=== PATIENT | female | born 1955 | race Caucasian/White ===

== ENCOUNTER 2017-04-14 12:27 | Inpatient (IN) ==
--- NOTE | 2017-04-14 17:42 | Podiatry History & Physical ---
History of Present Illness HPI: Ms. Candelario is a 61 year old female who underwent a #1 incision and drainage to bone cortex for osteomyelitis toe #2 #2 complete phalangectomy distal #2 right foot on 03/30/2017 per Patient presented to office today with pain, swelling and erythema to toe. Patient states that she went to the beach a couple of weeks ago and then the toe became very painful. Patient also states she was told by her PCP to stop her antibiotic because she had broke out in a rash. Patient states that her toe became more painful, swollen and red after stopping the antibiotics. Patient was admitted today after OV for administration of antibiotics and will prepare for amputation of toe #2 right foot in AM with . Patient is aware of plan. Patient denies any recent fevers, chills, n/v or flu like symptoms. Patient noted to have dressing in place which is currently saturated in blood. Also has post op shoe on. Patient has minimal health hx, only controlled DM and HTN. All Systems Reviewed: A 10-system review of systems was performed and is negative for pertinent findings except as documented above in the HPI. Past Med Surg Social Fam HX - Past Medical History Medical history: diabetes, hypertension, other Psychiatric history: no psych history - Past Surgical History Surgical History: knee replacement - Social History Smoking Status: Never smoker Smokeless Tobacco Status: No Alcohol use: none Drug use: none - Family History Mother Living Status: Still Living Hx Family Cardiac Disorders: Yes (CHF, A FIB) Medications and Allergies Aspirin Enteric Coated [Aspirin EC] 81 mg PO DAILY 06/06/16 [History] metFORMIN [Glucophage] 500 mg PO BIDWM 06/06/16 [History] Losartan/Hydrochlorothiazide [Hyzaar 100-25 Tablet] 1 tab PO DAILY 10/20/16 [ History] HYDROcodone/Acet 5/325 mg [[place] 5-325 mg] 1 tab PO Q4H PRN #20 tab 03/30/17 [Rx ] Allergies No Known Allergies Allergy (Verified 10/20/16 08:13) Physical Exam - Constitutional Vitals: Temp Pulse Resp BP Pulse Ox 98.4 F 91 16 108/70 97 04/14/17 16:39 04/14/17 16:39 04/14/17 16:39 04/14/17 16:39 04/14/17 16:39 Exam: Patient is awake, alert and oriented. Pedal pulses palpable DP/PT bilaterally Movement is intact Cap refill <3 seconds Edema +1/4 No calf pain with manual compression - Head Head exam: Present: normal inspection - Eye Eye exam: Present: normal appearance Pupils: Present: PERRL - Neck Neck exam: Present: full ROM - Respiratory Additional comments: coarse breath sounds throughout - GI/Abdominal GI/Abdominal exam: Present: soft - Extremities Exam Extremities exam: Present: full ROM, normal inspection - Expanded Lower Extremities Exam Foot/Toe exam: Present: erythema, swelling, tenderness 1 - Edema, erythema, warmth and tenderness of toe #2 right foot. s/p 03/30/17 08:27. #1 incision and drainage to bone cortex for osteomyelitis toe #2. #2 complete phalangectomy distal #2 right foot Results - Labs Labs: All other labs normal. Assessment and Plan (1) Skin infection Current visit: Yes Status: Acute Secondary to non healing surgical site with infection Will plan for administration of IV antibiotics at this time Will plan for OR tomorrow with for amputation of toe #2 right foot May eat now, will be NPO after midnight Will consult internal for medical management Strict glucose control to assist in healing process If dressing becomes saturated, please remove and place with dry sterile dressing Will write for 1x dose of pain medication to make patient comfortable (2) Rash Current visit: Yes Status: Acute Patient has rash over entire body, small fluid filled areas are noted Patient states it itches severely States she was told by PCP it was a reaction to antibiotic - to me, it appears related to sun exposure with concurrent antibiotic use- patient recently returned from the beach Will administer dose of solucortef as well as atarax PO for itching (3) Type 2 diabetes mellitus Current visit: Yes Status: Acute Will consult internal med for management Qualifiers: Diabetes mellitus complication status: without complication Diabetes mellitus termite treater insulin use: without termite treater use Qualified Code(s): E11.9 - Type 2 diabetes mellitus without complications (4) Hypertension Current visit: Yes Status: Acute Qualifiers: Hypertension type: unspecified Qualified Code(s): I10 - Essential (primary ) hypertension
[2017-04-14] MEDS ORDERED: Vancomycin 1,750 MG in D5% in Water 250 ML IVPB SCH (18:00)
[2017-04-14] MEDS ORDERED: HydrOXYzine SYP 10 MG/5 ML UDC PO PRN (18:02)
[2017-04-14] MEDS ORDERED: Hydrocortisone Sodium Succ 100 MG/2 ML VIAL IVP ONE (18:05)
[2017-04-14] MEDS ORDERED: Vancomycin 1,750 MG in D5% in Water 500 ML IVPB ONE ×2 (18:30→23:00)
[2017-04-14 18:32] LABS: Basophils % 0.3 %; Eosinophils # 0.4 K/mcL (0.0-0.6); Eosinophils % 4.2 %; Hematocrit 36.6 % (35.3-44.9); Hemoglobin 12.2 g/dL (11.5-15.4); Immature Granulocytes % 0.3 % (0-4); Lymphocytes # 1.8 K/mcL (0.6-4.6); Lymphocytes % 18.3 %; Mean Corpuscular HGB Conc 33.3 g/dL (31.6-35.5); Mean Corpuscular Hemoglobin 29.5 pg (28.0-33.3); Mean Corpuscular Volume 88.6 fL (83.0-100.0); Mean Platelet Volume 9.2 fL (9.4-12.4); Monocytes # 0.8 K/mcL (0.0-1.3); Monocytes % 8.4 %; Neutrophils # 6.7 K/mcL (1.6-8.9); Platelet Count 239 K/mcL (140-400); Red Blood Count 4.13 M/mcL (3.82-4.97); Red Cell Distribution Width 12.6 % (11.5-14.5); Segmented Neutrophils % 68.5 %
[2017-04-14 18:43] LABS: BUN/Creatinine Ratio 25 (6-26); Blood Urea Nitrogen 15 mg/dL (7-20); Calcium 9.5 mg/dL (8.6-10.8); Carbon Dioxide 24 mEq/L (19-29); Chloride 104 mEq/L (98-109); Glucose 120 mg/dL (70-99); Osmolality,Calculated 292 (280-300); Sodium 140 mEq/L (136-145); eGFR For African Americans > 60 (> 60); eGFR For Non-African Americans > 60 (> 60)
[2017-04-14 18:46] LABS: INR 1.1; Prothrombin Time 12.2 Seconds (9.4-12.1)
[2017-04-14 18:54] LABS: Potassium 3.8 mEq/L (3.5-4.5)
[2017-04-14] MEDS: *HR* HYDROcodone/Acet 5/325 mg TABLET PO PRN ×2 (19:30→23:48)
[2017-04-14] MEDS ORDERED: D5% in Water 1,000 ML IVC PRN (19:32)
[2017-04-14] MEDS ORDERED: *HR* Dextrose 50 % in Water (Syg) 50 ML SYRINGE IVP PRN (19:32)
[2017-04-14] MEDS ORDERED: Dextrose Gel 15 GM PO PRN ×2 (19:32)
--- NOTE | 2017-04-14 20:58 | Internal Medicine Consult Note ---
Date of Encounter: 04/14/17 Time of Encounter: 19:30 - Assessment and Plan (1) Diabetic foot ulcer Current Visit: Yes Status: Acute Assessment and plan: she has had debridement and amputations, exam of the wound look inflamed but promising, we will continue IV Vancomycin, should she spike a fever we will need to add Zosyn to cover for Pseudomonas, we will defer further management to Podiatry Qualifiers: Diabetic foot ulcer location: toe Diabetes mellitus type: type 2 Laterality: right Non-pressure ulcer stage: limited to breakdown of skin Qualified Code(s): E11.621 - Type 2 diabetes mellitus with foot ulcer; L97.511 - Non-pressure chronic ulcer of other part of right foot limited to breakdown of skin (2) Rash Current Visit: Yes Status: Acute Assessment and plan: this is macula and pruritic most likely related to the antibiotic she was taking (?cefdinir), she has since stopped it, should it worsen she will benefit from short term use of steroids, antihistamines as needed for symptom relief (3) Type 2 diabetes mellitus Current Visit: Yes Status: Chronic Assessment and plan: well controlled and on metformin, her last A1c was 6.6% in 09/2016, we will update that, for now we will hold her Metformin and do basal bolus insulin regimen, adjusting it based on her glucose readings, as long as she is fasting for surgical interventions we will do FS Q6H and switch to ACHS when she resumes eating, her insulin dosing will also follow her FS, upon discharge home she can resume her metformin immediately if she did not get any contrast studies but should she get contrast studies metformin will have to be held for 48 hours following the study Qualifiers: Diabetes mellitus complication status: with hyperglycemia Diabetes mellitus terminal make up operator insulin use: without mcc use Qualified Code(s): E11.65 - Type 2 diabetes mellitus with hyperglycemia (4) Hypertension Current Visit: Yes Status: Chronic Assessment and plan: will continue her medication with BP monitoring Qualifiers: Hypertension type: essential hypertension Qualified Code(s): I10 - Essential (primary) hypertension Internal Medicine - CN: HPI - Data of Consult Patient: new to practice Consult date: 04/14/17 Requesting Physician: Gordon Davey, - Consult Narrative Reason for consult: Assist in managing Diabetes type 2 in the setting of cellulitis History of present illness: Ms. Candelario is a 61 year old female with a hx of well controlled DM and HTN who follows up with Dr Davey who was sent to the ER of [facility] for worsening right 2nd toe ulcer. Per reports she had incision and drainage to bone cortex for osteomyelitis on toe #2 of the right foot followed by complete phalangectomy distal #2 right foot on 03/30/2017. She was subsequently started on antibiotics but she developed a generalized macula pruritic rash afterwards so that was discontinued by her PCP. She presented to office today with pain, swelling and erythema to toe and reported that this began after she went to the beach (whilst vacationing) a couple of weeks ago. It has gradually been getting increasingly red painful, pain in throbbing in character and 10/10 in severity and radiates proximally and has made it difficult for her to ambulate. She was sent to the ER for admission to be started on IV Vancomycin and for further debridement. She denies any systemic symptoms of fevers, chills, nausea or vomiting, or any flu like symptoms. The medical team was consulted to weigh in regarding her diabetes management in the face of her concurrent condition. Past Med Surg Social Fam HX - Past Medical History Source: patient, old records reviewed Medical history: diabetes, hypertension, other Psychiatric history: no psych history - Past Surgical History Surgical History: knee replacement (bilateral) - Social History Smoking Status: Never smoker Smokeless Tobacco Status: No Alcohol use: none Drug use: none - Family History Mother Living Status: Still Living Hx Family Cardiac Disorders: Yes (CHF, A FIB) - Additional Family History Additional family history: Both parents are with no known medical problems Internal Medicine - CN: Meds Aspirin Enteric Coated [Aspirin EC] 81 mg PO DAILY 06/06/16 [History] metFORMIN [Glucophage] 500 mg PO BIDWM 06/06/16 [History] Losartan/Hydrochlorothiazide [Hyzaar 100-25 Tablet] 1 tab PO DAILY 10/20/16 [ History] HYDROcodone/Acet 5/325 mg [[place] 5-325 mg] 1 tab PO Q4H PRN #20 tab 03/30/17 [Rx ] Allergies No Known Allergies Allergy (Verified 10/20/16 08:13) Internal Medicine - CN: Exam - Constitutional Vitals: Temp Pulse Resp BP Pulse Ox 98.3 F 90 18 122/78 96 04/14/17 20:24 04/14/17 20:24 08/04/17 20:24 04/14/17 20:24 04/14/17 20:24 Internal Medicine - CN: Reslt - Labs CBC & Chem 7: 04/14/17 18:17 04/14/17 18:17 Labs: Short CBC 04/14/17 Range/Units 18:17 WBC 9.8 (4.3-11.1) K/mcL Hgb 12.2 (11.5-15.4) g/dL Hct 36.6 (35.3-44.9) % Plt Count 239 (140-400) K/mcL Neutrophils # 6.7 (1.6-8.9) K/mcL BMP 04/14/17 18:17 Sodium 140 Potassium 3.8 Chloride 104 Carbon Dioxide 24 BUN 15 Creatinine 0.61 Glucose 120 H Calcium 9.5 - ABG Interpretation ABG results: PT/INR, D-dimer PT 12.2 Seconds (9.4-12.1) H 04/14/17 18:17 - Impressions We appreciate the opportunity to participate in the care of this patient, we will continue to follow with you Thank you On behalf of the hospitalist service Consult Discharge Plan - Plan Referrals: Antony Lopez DO [Primary Care Provider] -
[2017-04-14] MEDS: Insulin LISPRO 300 UNITS/3 ML VIAL SQ SCH (23:48)
[2017-04-15] MEDS: Insulin LISPRO 300 UNITS/3 ML VIAL SQ SCH ×4 (05:27→21:33)
[2017-04-15] MEDS ORDERED: Bupivacaine/Clonidine Syringe 1 EACH SYRINGE ONE (07:10)
--- NOTE | 2017-04-15 07:19 | Anesthesia Evaluation PreOp ---
Date of Encounter: 04/15/17 Time of Encounter: 07:17 - Past History Planned Operation: Partial Amputation Right Toe #2 Cardiac History: HTN Pulmonary History: Denies Any Significant HX OTR [employer] History: Denies Any Significant HX Other Medical History: Diabetes Type II Anesthesia History: Past Anesthesia (I&D Right toe) : No Alcohol Use: none Drug use: none Medications and Allergies Aspirin Enteric Coated [Aspirin EC] 81 mg PO DAILY 06/06/16 [History] metFORMIN [Glucophage] 500 mg PO BIDWM 06/06/16 [History] Losartan/Hydrochlorothiazide [Hyzaar 100-25 Tablet] 1 tab PO DAILY 10/20/16 [ History] HYDROcodone/Acet 5/325 mg [[place] 5-325 mg] 1 tab PO Q4H PRN #20 tab 03/30/17 [Rx ] Allergies No Known Allergies Allergy (Verified 10/20/16 08:13) - Meds/Allergy Pre-op Review Medications Reviewed: Yes Allergies Reviewed: Yes Beta Blockers on Current Med List: No Anesthesia Results - Labs 04/14/17 18:17 04/14/17 18:17 Stress 2010 No ischemia EF-60% - Imaging EKG: report reviewed (SINUS RHYTHM INFERIOR MYOCARDIAL INFARCTION, PROBABLY OLD) Anesthesia Exam O2 Sat Height 1.73 m Weight 92.941 kg Weight 108.579 kg O2 Sat by Pulse Oximetry 92 O2 Sat by Pulse Oximetry 97 O2 Sat by Pulse Oximetry 97 O2 Sat by Pulse Oximetry 96 O2 Sat by Pulse Oximetry 97 Vital Signs Temp Pulse Resp BP Pulse Ox 98.4 F 91 16 108/70 97 04/14/17 16:39 04/14/17 16:39 04/14/17 16:39 04/14/17 16:39 04/14/17 16:39 Vital Signs/O2 Sat, Most Current Temp Pulse Resp BP Pulse Ox 97.6 F 72 16 122/77 92 04/15/17 06:55 04/15/17 06:55 04/15/17 06:55 04/15/17 06:55 04/15/17 06:55 Height: 5'8" Weight: 204# NPO (# of Hours): > 8 hrs Pain Scale: 0 Pain Scale Used: Numeric (1 - 10) - HEENT Pupil (Motor): Pupils equal, EOMI Mallampati: III Teeth: Normal Oral Opening: Greater than 3 - OTR [employer] LOC: Oriented [employer] Motor: Normal RUE, Normal LUE, Normal RLE, Normal LLE, Normal Face [employer]TR [employer] Sensory: Normal: RUE, LUE, RLE, LLE, Face - Cardiac Rhythm: Regular Murmur: None JVD: No Carotid Bruit: No - Pulmonary Breath Sounds: bilateral Clear Respiratory Effort: Symmetrical Anesthesia Assess/Plan ASA Score: 2 Modified [place]in Scale for Level of Consciousness: Cooperative, oriented, and tranquil Anesthetic Plan: MAC Autologous Blood: Yes Monitoring Plan: Standard Monitors Recovery Plan: Other
[2017-04-15] MEDS ORDERED: *HR* FentaNYL (PF) 100 MCG/2 ML VIAL ONE (07:25)
[2017-04-15] MEDS ORDERED: *HR* Midazolam HCl 2 MG/2 ML VIAL ONE (07:25)
[2017-04-15] MEDS ORDERED: Propofol 500 MG/50 ML INFUS..BTL ONE (07:32)
[2017-04-15] MEDS ORDERED: Lidocaine -MPF 2% 2 ML VIAL ONE (07:35)
[2017-04-15] MEDS ORDERED: *HR* Propofol 200 MG/20 ML VIAL IVP ONE (07:58)
[2017-04-15] MEDS ORDERED: Ondansetron 4 MG/2 ML VIAL ONE (08:11)
[2017-04-15] MEDS ORDERED: Dexamethasone 4 MG/ML VIAL ONE (08:11)
[2017-04-15] MEDS ORDERED: Losartan/HCTZ 50-12.5 TABLET PO SCH (09:00)
--- NOTE | 2017-04-15 09:11 | Anesthesia Evaluation Post Op ---
Date of Encounter: 04/15/17 Time of Encounter: 09:04 - Vital Signs Vital Signs: Vital Signs/O2 Sat, Most Current Temp Pulse Resp BP Pulse Ox 97.6 F 72 16 113/70 72 04/15/2017 08:57 04/15/17 08:57 04/15/17 08:57 04/15/17 08:57 04/15/17 08:57 - Lungs Lungs: Clear Ascult./Percussion - Airway Airway: Non-obstructed - Cardiovascular Regular Rate - Mental Status Mental Status: Alert & Oriented, Answers Appropriately - Pain Pain Scale: 0 Pain Scale used: Numeric (1 - 10) - Hydration Hydration: NPO, Has not voided - Discharge PostOp Status: Transfer Patient to floor
--- NOTE | 2017-04-15 09:11 | Orthopedic Operative Note ---
Date of procedure: 04/15/17 Pre-op diagnosis: Osteomyelitis toe #2 right Post-op diagnosis: same Procedure: 04/15/17 09:04 #1 partial amputation of toe at the level of the proximal phalangeal joint #2, toe right foot Implants: None Complications: None Anesthesia: MAC, local Local Anesthetics: 0.25% Sensorcaine HCL SubQ (cc) Surgeon: Gordon Davey Estimated blood loss (cc): 5 Tourniquet Time (Minutes): 0 Specimen: #1 distal aspect toe #2 right foot. #2 middle phalanx for bone culture. Condition: stable Disposition: floor Procedure in Detail: 04/15/17 09:05 Details in summary of the procedure: The patient was brought to the surgical suite. A sign in procedure was performed. The patient was then transferred to the surgical table and positioned probably safely securely. The right foot was elevated on a foam block. Anesthetic timeout was taken. The right ankle was prepped with alcohol 3 times in a modified ankle block was carried out with local anesthetic without difficulty or complication. No tourniquet was used. The right foot was then prepped and draped in usual sterile manner. Surgical timeout was taken. Inspection of the second toe revealed a dehiscence of the distal aspect of the second toe without active drainage. Patient incision was planned with a skin scribe beginning in the medial aspect of the proximal interphalangeal joint and brought distally and then plantarly and transverse fashion bleeding the junction of the lateral plantar skin on the lateral aspect of the toe and then proximally in a linear fashion proximally to the proximal phalanx. Satisfied that this incision would be appropriate the operation began using a #15 scalpel blade an incision was made on the medial aspect of the second toe directly down to the surgical neck of the proximal phalanx and brought distally once reaching the distal aspect of the middle phalanx purulent drainage was expressed immediately to the medial aspect of the incision. The incision was continued plantarly. At that point cultures were taken swab aerobic and anaerobic of purulent drainage. Using a #15 scalpel blade fresh incision was continued from the plantar aspect to the lateral aspect of the toe at the junction of the lateral dorsal skin and then proximally in linear fashion to the surgical neck of the proximal phalanx a transverse incision was then begun on the dorsal aspect just at the level of the middle phalanx from dorsal medial to dorsal lateral. The distal aspect of the second toe was then amputated without difficulty or complication exposing the middle phalanx which is noted to be of abnormal color texture density and irregular character. The wound was flushed with copious amounts sterile saline. The middle phalanx was then isolated at the level of the PIPJ and dividing the collateral medial lateral ligaments dorsal and plantar the middle phalanx was then resected and sent immediately for culture. The head of the proximal phalanx was noted to be absolutely pristine and normal color texture density character cartilaginous surfaces were intact and there was no evidence of any necrosis remaining of any soft tissue within the wound. It was thoroughly inspected and flushed with copious amounts sterile saline at least 250 mL. The remaining soft tissue the wound was of normal color texture and density without evidence of any necrosis. As at that point decision to close the wound loosely was made. Using a 3-0 Vicryl the flexor tendon was then reanastomosed the dorsal tendon over the distal aspect of the proximal phalanx. The skin was then loosely closed with 3-0 Prolene. There was no active bleeding that necessitated use of Bovie ligature. The wound noted to bleed freely again without active hemostasis. Dorsal and plantar flaps remained viable with a Initial time of less than 3 seconds after closure. The wound was cleansed with saline and peroxide. And dressed with sterile Adaptic 4 x 4's and Kerlix and a mild compressive dressing. Occasions, none estimated blood loss less than 5ml. Specimen distal aspect of tumor 2 toe right foot. Bone culture middle phalanx #2 toe. Swab cultures aerobe and anaerobe right second toe. The patient was then sent to holding and then onto the floor with vital signs stable without complication. 04/15/17 09:11
[2017-04-15] MEDS ORDERED: D5% in Water 1,000 ML IVC PRN (09:14)
[2017-04-15] MEDS ORDERED: HydrOXYzine SYP 10 MG/5 ML UDC PO PRN (09:14)
[2017-04-15] MEDS ORDERED: *HR* Dextrose 50 % in Water (Syg) 50 ML SYRINGE IVP PRN (09:14)
[2017-04-15] MEDS ORDERED: Dextrose Gel 15 GM PO PRN ×2 (09:14)
[2017-04-15] MEDS ORDERED: Vancomycin 1,750 MG in D5% in Water 500 ML IVPB SCH ×2 (10:00)
[2017-04-15] MEDS ORDERED: Insulin LISPRO 300 UNITS/3 ML VIAL SQ SCH (12:00)
--- NOTE | 2017-04-15 16:02 | Internal Med Progress Note ---
Date of Encounter: 04/15/17 Time of Encounter: 10:15 - Assessment and plan (1) Diabetic foot ulcer Current Visit: Yes Status: Acute Assessment and plan: Status post partial" total level of proximal phalangeal joint on the right side - doing well postoperatively Continue IV vancomycin Plan as per primary team Thank you for the consult. We will follow-up with patient. Qualifiers: Diabetic foot ulcer location: toe Diabetes mellitus type: type 2 Laterality: right Non-pressure ulcer stage: limited to breakdown of skin Qualified Code(s): E11.621 - Type 2 diabetes mellitus with foot ulcer; L97.511 - Non-pressure chronic ulcer of other part of right foot limited to breakdown of skin (2) Type 2 diabetes mellitus Current Visit: Yes Status: Chronic Assessment and plan: Diabetes mellitus type 2, [id number]-[id number], hyperglycemia Insulin sliding scale, glucose checks HbA1c 6.6 Continue Metformin on discharge Qualifiers: Diabetes mellitus complication status: with hyperglycemia Diabetes mellitus jail insulin use: without jail use Qualified Code(s): E11.65 - Type 2 diabetes mellitus with hyperglycemia (3) Hypertension Current Visit: Yes Status: Chronic Assessment and plan: Essential hypertension, controlled, monitor, continue home meds Qualifiers: Hypertension type: essential hypertension Qualified Code(s): I10 - Essential (primary) hypertension - Time Spent With Patient 25 - 35 minutes - Subjective Interval history: Examined this morning. Patient is awake and alert. Not in any distress. Denies chest pain or shortness of breath. Patient was admitted by Dr. Davey for a nonhealing surgical site infection. Patient underwent a partial amputation of the toe with a little proximal phalangeal joint this morning. Doing well postoperatively. No fever. Hemodynamically stable. No other acute complaints. Hospitalist service consultation for management of diabetes mellitus. Thank you for the consult. We will follow up with the patient. - Constitutional Vitals: Temp Pulse Resp BP Pulse Ox 98.2 F 84 17 126/76 97 04/15/17 14:39 04/15/17 14:39 04/15/17 14:39 04/15/17 14:39 04/15/17 14:39 General appearance: Present: A&O X 3, pleasant, no acute distress, obese, answers questions appropriately - Head Head exam: Present: atraumatic - Eye Eye exam: Present: EOMI - Neck Neck exam general surgery: Present: supple - Respiratory Respiratory exam: Present: CTAB. Absent: rales, rhonchi, stridor, wheezes, tachypnea - Cardiovascular Cardiovascular exam: Present: RRR, +S1, +S2 - GI/Abdominal GI/Abdominal exam: Present: soft. Absent: distended, firm, guarding, rigid, tenderness - Extremities Exam Extremities exam: Present: pedal edema (Mild bilateral), radial pulses palpable and symetrical. Absent: cyanotic Additional comments: Status post partial amputation of the total of the proximal phalangeal joint on the right side, surgical dressing intact, no bleeding or drainage - Neurological Exam Neurological exam: Present: alert, oriented X3, no focal deficits Internal Medicine: Result - Labs CBC & Chem 7: 04/14/17 18:17 04/14/17 18:17 Labs: Short CBC 04/14/17 Range/Units 18:17 WBC 9.8 (4.3-11.1) K/mcL Hgb 12.2 (11.5-15.4) g/dL Hct 36.6 (35.3-44.9) % Plt Count 239 (140-400) K/mcL Neutrophils # 6.7 (1.6-8.9) K/mcL BMP 04/14/17 18:17 Sodium 140 Potassium 3.8 Chloride 104 Carbon Dioxide 24 BUN 15 Creatinine 0.61 Glucose 120 H Calcium 9.5 - ABG Interpretation ABG results: PT/INR, D-dimer PT 12.2 Seconds (9.4-12.1) H 04/14/17 18:17 - VTE Documentation of Mechanical Device: Intermittent pneumatic compression device Consult Discharge Plan - Plan Referrals: Antony Lopez DO [Primary Care Provider] -
[2017-04-15] MEDS: Vancomycin 1,250 MG in D5% in Water 250 ML IVPB SCH (22:09)
[2017-04-16] MEDS ORDERED: Temazepam 15 MG CAPSULE PO ONE ×2 (00:06→21:56)
[2017-04-16 04:43] LABS: Hemoglobin A1C 6.6 %
[2017-04-16] MEDS: Insulin DETEMIR 100 UNIT/ML X5UNITS SQ SCH ×2 (09:06→22:05)
[2017-04-16] MEDS: Losartan/HCTZ 50-12.5 TABLET PO SCH (09:06)
[2017-04-16] MEDS: Aspirin Enteric Coated 81 MG Tablet PO SCH (09:06)
[2017-04-16] MEDS: *HR* HYDROcodone/Acet 5/325 mg TABLET PO PRN ×2 (09:10→22:05)
[2017-04-16] MEDS: Vancomycin 1,250 MG in D5% in Water 250 ML IVPB SCH ×2 (10:35→22:07)
--- NOTE | 2017-04-16 12:39 | Podiatry Progress Note ---
Date of Encounter: 04/16/17 Time of Encounter: 12:35 - Assessment and Plan (1) Acute osteomyelitis of toe of right foot Current Visit: Yes Status: Acute Assessment: #1 status post 24 hours partial amputation toe #2 right foot without any constitutional signs of infection or complication #2 healing uneventfully #3 cultures final still pending history of MRSA. Most recent culture in clinic prior to surgery revealed MSSA #4 intraoperative cultures and bone culture pending Plan: #1 continue IV antibiotic/vancomycin until cultures prove otherwise #2 consider home IV antibiotics for 3 weeks pending bone culture/wound cultures #3 continue pharmacy dosed vancomycin and monitor kidney function given her history of diabetes #4 will change dry sterile dressing in the a.m. and evaluate wound. Subjective Principal diagnosis: Osteomyelitis toe #2 right foot Interval history: Mrs. Candelario underwent partial amputation of toe surgical control the infection successful. Dressing dry clean and intact no complaints of fever chills nausea vomiting. No chest pain or shortness of breath. Patient complains of minimal pain slight discomfort Objective - Vital Signs Vital Signs: Vital Signs Temp Pulse Resp BP Pulse Ox 04/16/17 10:24 97.5 F L 71 16 129/77 98 04/16/17 06:36 97.4 F L 70 16 114/70 94 04/16/17 03:59 97.6 F 77 14 118/71 97 04/15/17 23:55 97.7 F 84 14 137/89 97 04/15/17 18:40 98.0 F 85 14 111/67 97 04/15/17 14:39 98.2 F 84 17 126/76 97 Intake and Output 04/15/17 04/16/17 04/16/17 23:59 07:59 15:59 Intake Total 370 / 370 240 / 240 240 / 240 Output Total 400 / 400 0 / 0 100 / 100 Balance -30 / -30 240 / 240 140 / 140 Intake: IV Fluids 250 / 250 Vancocin 1,250 MG In 250 / 250 Dextrose 5% 250 ML @ 166. 67 mls/hr IVPB Q12H [facility] Rx#:[id number] Oral 120 / 120 240 / 240 240 / 240 Output: Urine 400 / 400 0 / 0 100 / 100 Other: Meal Breakfast Percent of Meal Consumed 100% Stool Size Moderate Stool Consistency formed Stool Color Brown # Voids 1 # Bowel Movements 1 0 0 Weight 92.805 kg Blood Glucose* 173 118 150 Patient Weight 04/16/17 23:59 Weight 92.805 kg - Exam Exam: Dressing dry clean and intact no strikethrough drainage. - Lab Result Diagrams: 04/14/17 18:17 04/14/17 18:17 Labs: Abnormal lab results MPV 9.2 fL (9.4-12.4) L 04/14/17 18:17 ESR 61 mm/hr (0-15) H 04/14/17 18:17 PT 12.2 Seconds (9.4-12.1) H 04/14/17 18:17 Glucose 120 mg/dL (70-99) H 04/14/17 18:17 POC Glucose 173 (58-89) H 04/15/17 20:42 Hemoglobin A1c 6.6 % (-5.6) H 04/14/17 18:17 Vancomycin Trough 7.7 mcg/mL (10-20) L 04/16/17 09:09 - VTE Documentation of Mechanical Device: Intermittent pneumatic compression device Consult Discharge Plan - Plan Referrals: Antony Lopez DO [Primary Care Provider] -
[2017-04-16] MEDS: Insulin LISPRO 300 UNITS/3 ML VIAL SQ SCH ×3 (12:44→22:00)
--- NOTE | 2017-04-16 15:34 | Internal Med Progress Note ---
Date of Encounter: 04/16/17 Time of Encounter: 11:15 - Assessment and plan (1) Diabetic foot ulcer Current Visit: Yes Status: Acute Assessment and plan: Status post partial amputation of toe at the level of proximal phalangeal joint on the right side - doing well postoperatively, postop day #1 Continue IV vancomycin, wound care Plan as per primary team, discharge planning as per primary team Thank you for the consult. We will follow-up with patient. Qualifiers: Diabetic foot ulcer location: toe Diabetes mellitus type: type 2 Laterality: right Non-pressure ulcer stage: limited to breakdown of skin Qualified Code(s): E11.621 - Type 2 diabetes mellitus with foot ulcer; L97.511 - Non-pressure chronic ulcer of other part of right foot limited to breakdown of skin (2) Type 2 diabetes mellitus Current Visit: Yes Status: Chronic Assessment and plan: Diabetes mellitus type 2, [id number], hyperglycemia Insulin sliding scale with medium dose correction, continue Levemir, glucose checks HbA1c 6.6 Continue Metformin on discharge Qualifiers: Diabetes mellitus complication status: with hyperglycemia Diabetes mellitus executive sous chef insulin use: without executive sous chef use Qualified Code(s): E11.65 - Type 2 diabetes mellitus with hyperglycemia (3) Hypertension Current Visit: Yes Status: Chronic Assessment and plan: Essential hypertension, controlled, monitor, continue home meds Qualifiers: Hypertension type: essential hypertension Qualified Code(s): I10 - Essential (primary) hypertension - Time Spent With Patient 25 - 35 minutes - Subjective Interval history: Examined this morning. Patient is awake and alert. Not in any distress. Denies chest pain or shortness of breath. Patient was admitted by Dr. Davey for a nonhealing surgical site infection. Patient underwent a partial amputation of the toe with a little proximal phalangeal joint, postop day #1. Doing well postoperatively. Hospitalist service consultation for management of diabetes mellitus. Patient continues to have hypoglycemia. Insulin sliding scale dose has been adjusted and Levemir will be continued. No other acute events or complaints. No fever. Hemodynamically stable. Thank you for the consult. We will follow up with the patient. - Constitutional Vitals: Temp Pulse Resp BP Pulse Ox 98.0 F 85 16 119/73 98 04/16/17 15:16 04/16/17 15:16 04/16/17 15:16 04/16/17 15:16 04/16/17 15:16 General appearance: Present: A&O X 3, pleasant, no acute distress, obese, answers questions appropriately - Head Head exam: Present: atraumatic - Eye Eye exam: Present: EOMI - ENT ENT exam: Present: mucous membranes moist - Neck Neck exam general surgery: Present: supple - Respiratory Respiratory exam: Absent: CTAB, rales, rhonchi, stridor, wheezes, tachypnea - Cardiovascular Cardiovascular exam: Present: RRR, +S1, +S2 - GI/Abdominal GI/Abdominal exam: Present: soft. Absent: distended, firm, guarding, rigid, tenderness - Extremities Exam Extremities exam: Present: pedal edema (Mild bilateral), radial pulses palpable and symetrical. Absent: calf tenderness, cyanotic Additional comments: Status post partial amputation of the total of the proximal phalangeal joint on the right side, surgical dressing intact, no bleeding or drainage - Neurological Exam Neurological exam: Present: alert, oriented X3, no focal deficits Internal Medicine: Result - Labs CBC & Chem 7: 04/14/17 18:17 04/14/17 18:17 - ABG Interpretation ABG results: PT/INR, D-dimer PT 12.2 Seconds (9.4-12.1) H 04/14/17 18:17 - VTE Documentation of Mechanical Device: Intermittent pneumatic compression device Consult Discharge Plan - Plan Referrals: Antony Lopez DO [Primary Care Provider] -
[2017-04-17 05:01] LABS: BUN/Creatinine Ratio 32 (6-26); Blood Urea Nitrogen 22 mg/dL (7-20); Calcium 8.9 mg/dL (8.6-10.8); Carbon Dioxide 25 mEq/L (19-29); Chloride 106 mEq/L (98-109); Glucose 119 mg/dL (70-99); Osmolality,Calculated 292 (280-300); Potassium 3.9 mEq/L (3.5-4.5); Sodium 139 mEq/L (136-145); eGFR For African Americans > 60 (> 60); eGFR For Non-African Americans > 60 (> 60)
[2017-04-17] MEDS: Losartan/HCTZ 50-12.5 TABLET PO SCH (08:01)
[2017-04-17] MEDS: Aspirin Enteric Coated 81 MG Tablet PO SCH (08:01)
[2017-04-17] MEDS: Insulin LISPRO 300 UNITS/3 ML VIAL SQ SCH ×4 (08:01→22:15)
[2017-04-17] MEDS: Insulin DETEMIR 100 UNIT/ML X5UNITS SQ SCH ×2 (09:47→22:15)
[2017-04-17] MEDS: Vancomycin 1,500 MG in D5% in Water 250 ML IVPB SCH ×2 (09:47→22:15)
[2017-04-17] MEDS ORDERED: *HR* LORazepam 0.5 MG TABLET PO PRN (12:59)
--- NOTE | 2017-04-17 13:06 | Podiatry Progress Note ---
Date of Encounter: 04/17/17 Time of Encounter: 11:00 - Assessment and Plan (1) Skin infection Current Visit: Yes Status: Acute Assessment: #1 status post day #3 partial amputation toe #2 right foot without any constitutional signs of infection or complication #2 healing uneventfully- dressing changed at bedside today, cleansed with saline, betadine, adaptic, 4x4 and kerlex #3 cultures final still pending history of MRSA. Most recent culture in clinic prior to surgery revealed MSSA #4 intraoperative cultures and bone culture pending- ordered blood cultures for picc placement Plan: #1 continue IV antibiotic/vancomycin until cultures prove otherwise- 3 weeks per PICC placement- will go home when PICC can be placed after negative blood cultures. #2 continue pharmacy dosed vancomycin and monitor kidney function given her history of diabetes #3 Will change dressings daily until discharge #4 Will need seen in clinic 5-7 days after discharge (2) Rash Current Visit: Yes Status: Acute Improved Patient states it is no longer an issue (3) Type 2 diabetes mellitus Current Visit: Yes Status: Chronic Will consult internal med for management Qualifiers: Diabetes mellitus complication status: with hyperglycemia Diabetes mellitus petroleum terminal plant operator insulin use: without care home use Qualified Code(s): E11.65 - Type 2 diabetes mellitus with hyperglycemia (4) Hypertension Current Visit: Yes Status: Chronic Qualifiers: Hypertension type: essential hypertension Qualified Code(s): I10 - Essential (primary) hypertension (5) Anxiety Current Visit: Yes Status: Acute Patient is notably anxious Will write for ativan PRN TID for symptoms of anxiety Subjective Principal diagnosis: Osteomyelitis toe #2 right foot Interval history: Mrs. Candelario underwent partial amputation of toe surgical control the infection successful. Dressing dry clean and intact on arrival with Vanc infusing to midline at bedside. no complaints of fever chills nausea vomiting. No chest pain or shortness of breath. Patient complains of minimal pain slight discomfort. Patient denies any calf pain Objective - Vital Signs Vital Signs: Vital Signs Temp Pulse Resp BP Pulse Ox 04/17/17 11:13 97.5 F L 80 18 115/80 96 04/17/17 07:01 97.5 F L 69 14 119/80 97 04/17/17 03:25 97.5 F L 70 14 108/71 97 04/16/17 23:31 97.5 F L 71 16 116/75 96 04/16/17 18:28 97.9 F 82 14 107/72 98 04/16/17 15:16 98.0 F 85 16 119/73 98 Intake and Output 04/16/17 04/17/17 04/17/17 23:59 07:59 15:59 Intake Total 360 / 360 120 / 120 Output Total 0 / 0 0 / 0 Balance 360 / 360 120 / 120 Intake: Oral 360 / 360 120 / 120 Output: Urine 0 / 0 0 / 0 Other: Meal Dinner Percent of Meal Consumed 100% Stool Size Moderate Stool Consistency formed Stool Color Brown # Voids 1 1 1 # Bowel Movements 1 0 0 Weight 92.941 kg Blood Glucose* 125 145 Patient Weight 04/17/17 23:59 Weight 92.941 kg - Exam Exam: Podiatry General Exam: General appearance: alert awake oriented X 3. plesant, anxious. Vascular: Pedal pulses +2/4 DP/PT , No evidence of cyanosis, pallor or rubor, Edema graded at 1+/4, Skin Temperature warm, No calf pain with manual compression. capillary refill time is immediate to digits. Neurologic: Sensation intact with light touch to foot. . Postop Exam: S/P amputation of toe #2 right foot. Sutures intact to incision line, no signs of dehiscence. No open area, no drainage, no odor, no erythema, no streaking. Minimal edema.Appears to be healing well. No drainage. - Lab Result Diagrams: 04/14/17 18:17 04/17/17 04:21 Labs: Abnormal lab results MPV 9.2 fL (9.4-12.4) L 04/14/17 18:17 ESR 61 mm/hr (0-15) H 04/14/17 18:17 PT 12.2 Seconds (9.4-12.1) H 04/14/17 18:17 BUN 22 mg/dL (7-20) H 04/17/17 04:21 BUN/Creatinine Ratio 32 (6-26) H 04/17/17 04:21 Glucose 119 mg/dL (70-99) H 04/17/17 04:21 POC Glucose 145 (58-89) H 04/17/17 11:55 Hemoglobin A1c 6.6 % (-5.6) H 04/14/17 18:17 Vancomycin Trough 8.0 mcg/mL (10-20) L 04/16/17 20:43 Microbiology, Last 48 Hours 04/15/17 09:20 Wound Culture - Final Second Right Toe Staphylococcus aureus - VTE Documentation of Mechanical Device: Intermittent pneumatic compression device Consult Discharge Plan - Plan Referrals: Antony Lopez DO [Primary Care Provider] -
--- NOTE | 2017-04-17 18:17 | Internal Med Progress Note ---
Date of Encounter: 04/17/17 Time of Encounter: 10:35 - Assessment and plan (1) Diabetic foot ulcer Current Visit: Yes Status: Acute Assessment and plan: Status post partial amputation of toe at the level of proximal phalangeal joint on the right side - doing well postoperatively, postop day #2 Continue IV vancomycin, wound care Pending PICC line placement for IV antibiotics at home Plan as per primary team, discharge planning as per primary team Thank you for the consult. We will follow-up with patient Qualifiers: Diabetic foot ulcer location: toe Diabetes mellitus type: type 2 Laterality: right Non-pressure ulcer stage: limited to breakdown of skin Qualified Code(s): E11.621 - Type 2 diabetes mellitus with foot ulcer; L97.511 - Non-pressure chronic ulcer of other part of right foot limited to breakdown of skin (2) Type 2 diabetes mellitus Current Visit: Yes Status: Chronic Assessment and plan: Diabetes mellitus type 2, [id number], hyperglycemia - glucose is better controlled now Insulin sliding scale with medium dose correction, continue Levemir, glucose checks HbA1c 6.6 Continue Metformin on discharge Qualifiers: Diabetes mellitus complication status: with hyperglycemia Diabetes mellitus salvage determiner insulin use: without nursing home use Qualified Code(s): E11.65 - Type 2 diabetes mellitus with hyperglycemia (3) Hypertension Current Visit: Yes Status: Chronic Assessment and plan: Essential hypertension, controlled, monitor, continue home meds Qualifiers: Hypertension type: essential hypertension Qualified Code(s): I10 - Essential (primary) hypertension - Time Spent With Patient 25 - 35 minutes - Subjective Interval history: Examined this morning. Patient is awake and alert. Not in any distress. Denies chest pain or shortness of breath. Patient was admitted by Dr. Davey for a nonhealing surgical site infection. Patient underwent a partial amputation of the toe with a little proximal phalangeal joint, postop day #2. Doing well postoperatively. Patient is upset that she is on contact precautions. Wound cultures have grown staph aureus. Sensitive to Bactrim. Hospitalist service consultation for management of diabetes mellitus. Patient continues to have hyperglycemia. Glucose now better controlled. Insulin sliding scale dose has been adjusted and Levemir will be continued. No other acute events or complaints. No fever. Hemodynamically stable. Thank you for the consult. We will follow up with the patient. - Constitutional Vitals: Temp Pulse Resp BP Pulse Ox 97.8 F 83 16 107/74 95 04/17/17 15:03 04/17/17 15:03 04/17/17 15:03 04/17/17 15:03 04/17/17 15:03 General appearance: Present: A&O X 3, pleasant, no acute distress, obese, answers questions appropriately - Head Head exam: Present: atraumatic - Eye Eye exam: Present: EOMI - ENT ENT exam: Present: mucous membranes moist - Neck Neck exam general surgery: Present: supple - Respiratory Respiratory exam: Present: CTAB. Absent: rales, rhonchi, wheezes, tachypnea - Cardiovascular Cardiovascular exam: Present: RRR, +S1, +S2 - GI/Abdominal GI/Abdominal exam: Present: soft. Absent: distended, firm, guarding, rigid, tenderness - Extremities Exam Extremities exam: Present: radial pulses palpable and symetrical. Absent: cyanotic, pedal edema - Neurological Exam Neurological exam: Present: alert, oriented X3, no focal deficits Internal Medicine: Result - Labs CBC & Chem 7: 04/14/17 18:17 04/17/17 04:21 Labs: BMP 04/17/17 04:21 Sodium 139 Potassium 3.9 Chloride 106 Carbon Dioxide 25 BUN 22 H Creatinine 0.69 Glucose 119 H Calcium 8.9 - ABG Interpretation ABG results: PT/INR, D-dimer PT 12.2 Seconds (9.4-12.1) H 04/14/17 18:17 - VTE Documentation of Mechanical Device: Intermittent pneumatic compression device Consult Discharge Plan - Plan Referrals: Antony Lopez DO [Primary Care Provider] -
[2017-04-17] MEDS ORDERED: Temazepam 15 MG CAPSULE PO ONE (22:29)
[2017-04-17] MEDS: *HR* HYDROcodone/Acet 5/325 mg TABLET PO PRN (23:02)
[2017-04-18] MEDS: Losartan/HCTZ 50-12.5 TABLET PO SCH (08:39)
[2017-04-18] MEDS: Aspirin Enteric Coated 81 MG Tablet PO SCH (08:39)
[2017-04-18] MEDS: Insulin DETEMIR 100 UNIT/ML X5UNITS SQ SCH (08:40)
[2017-04-18] MEDS: Insulin LISPRO 300 UNITS/3 ML VIAL SQ SCH ×3 (08:41→17:09)
--- NOTE | 2017-04-18 10:16 | Internal Med Progress Note ---
<Ryan Neville - Last Filed: 04/18/17 15:46> Date of Encounter: 04/18/17 Time of Encounter: 09:23 - Assessment and plan (1) Acute osteomyelitis of toe of right foot Status: Acute Assessment and plan: POD #3 s/p partial amputation of Right proximal phalanx #2. Bandage is clean and dry with no signs of drainage. IV vancomycin - pending Surgical wound cultures and Blood cultures - 04/15/17 - History of Staph. aureus from wound culture (sensitive to Bactrim ) with no anaerobic growth to date D/C after PICC placement pending results of Blood culture SCDs for DVT prophylaxis (2) Type 2 diabetes mellitus Status: Chronic Assessment and plan: Diabetes mellitus type 2, [id number]-qtdlorumn, hyperglycemia - glucose is better controlled now Insulin sliding scale with medium dose correction, continue Levemir, glucose checks HbA1c 6.6 Continue Metformin on discharge Qualifiers: Diabetes mellitus complication status: with hyperglycemia Diabetes mellitus long term care administrator insulin use: without senior living use Qualified Code(s): E11.65 - Type 2 diabetes mellitus with hyperglycemia (3) Hypertension Status: Chronic Assessment and plan: Essential hypertension, controlled, monitor, continue home meds Qualifiers: Hypertension type: essential hypertension Qualified Code(s): I10 - Essential (primary) hypertension - Subjective Interval history: Patient seen and evaluated. Pain is controlled, bandage clean and dry with no signs of drainage. Ambulating well. Denies fevers/chills, chest pain, dyspnea, cough, N/V/D, dysuria, or leg edema. - Constitutional Vitals: Temp Pulse Resp BP Pulse Ox 97.8 F 86 18 130/85 95 04/18/17 07:31 04/18/17 07:31 04/18/17 07:31 04/18/17 07:31 04/18/17 07:31 General appearance: Present: A&O X 3, no acute distress, obese, answers questions appropriately - Head Head exam: Present: atraumatic, normocephalic - Eye Eye exam: Present: sclera anicteric - ENT ENT exam: Present: mucous membranes moist - Respiratory Respiratory exam: Present: CTAB. Absent: rales, rhonchi, wheezes - Cardiovascular Cardiovascular exam: Present: RRR, +S1, +S2. Absent: diastolic murmur, systolic murmur - GI/Abdominal GI/Abdominal exam: Present: normal bowel sounds, soft. Absent: distended, rigid , tenderness - Extremities Exam Extremities exam: Present: warm, radial pulses palpable and symmetrical. Absent : calf tenderness, joint swelling, pedal edema - Neurological Exam Neurological exam: Present: alert, CN II-XII intact, oriented X3, no focal deficits Internal Medicine: Result - Labs CBC & Chem 7: 04/18/17 12:10 04/17/17 04:21 - ABG Interpretation ABG results: PT/INR, D-dimer PT 12.2 Seconds (9.4-12.1) H 04/14/17 18:17 - VTE Documentation of Mechanical Device: Intermittent pneumatic compression device Consult Discharge Plan - Plan Instructions: Diabetes Mellitus Type 2 in Adults (DC) Additional Instructions: Will need to follow up with PCP in 1-2 weeks for continued management and update of procedures Referrals: Gordon Davey DPM [Partnered Physician] - 04/21/17 1:00 pm Prescriptions: HYDROcodone/Acet 5/325 mg [[place] 5-325 mg] 1 tab PO Q4H PRN #20 tab PRN Reason: Pain Linezolid 600 mg PO BID #28 tablet Linezolid 600 mg PO BID #2 tablet <Albert Gloria - Last Filed: 04/18/17 18:31> Date of Encounter: 04/18/17 - Assessment and plan (1) Type 2 diabetes mellitus Status: Chronic Assessment and plan: Continue home meds Qualifiers: Diabetes mellitus complication status: with hyperglycemia Diabetes mellitus long term care administrator insulin use: without senior living use Qualified Code(s): E11.65 - Type 2 diabetes mellitus with hyperglycemia (2) Hypertension Status: Chronic Assessment and plan: Continue home meds. Qualifiers: Hypertension type: essential hypertension Qualified Code(s): I10 - Essential (primary) hypertension (3) Acute osteomyelitis of toe of right foot Status: Acute (4) Diabetic foot ulcer associated with diabetes mellitus due to underlying condition Status: Acute Qualifiers: Diabetic foot ulcer location: toe Laterality: right Non-pressure ulcer stage: with necrosis of bone Qualified Code(s): E08.621 - Diabetes mellitus due to underlying condition with foot ulcer; L97.514 - Non-pressure chronic ulcer of other part of right foot with necrosis of bone - Constitutional Vitals: Temp Pulse Resp BP Pulse Ox 97.8 F 97 16 113/77 98 04/18/17 15:20 04/18/17 15:20 04/18/17 15:20 04/18/17 15:20 04/18/17 15:20 Internal Medicine: Result - Labs CBC & Chem 7: 04/18/17 12:10 04/17/17 04:21 Labs: Short CBC 04/18/17 Range/Units 12:10 WBC 9.3 (4.3-11.1) K/mcL Hgb 14.0 D (11.5-15.4) g/dL Hct 42.3 (35.3-44.9) % Plt Count 272 (140-400) K/mcL Neutrophils # 5.8 (1.6-8.9) K/mcL - ABG Interpretation ABG results: PT/INR, D-dimer PT 12.2 Seconds (9.4-12.1) H 04/14/17 18:17 - Attending Attestation I examined this patient and my medical decision-making was reviewed with the Resident Physician on 04/18/17. I agree with the documented findings, disposition and treatment plan as described except to the extent set forth below. Ms. Candelario has been admitted for osteomyelitis of foot. Medicine is following for diabetes. She remains moderate risk due to fluctuating blood sugars. Ms. Candelario is happy she is going home today. Working on getting abx. Requested some pain meds. Exam Alert. Comfortable. Mucus membranes dry Heart reg No wheeze Dressing intact I/P 1. DM - continue home meds 2. #20 of [place] 5/325 given for pain Further diagnoses and plan as above.
[2017-04-18] MEDS: Vancomycin 1,500 MG in D5% in Water 250 ML IVPB SCH (11:02)
[2017-04-18 12:19] LABS: Basophils # 0.1 K/mcL (0.0-0.2); Basophils % 0.8 %; Eosinophils # 0.4 K/mcL (0.0-0.6); Eosinophils % 4.2 %; Hematocrit 42.3 % (35.3-44.9); Lymphocytes # 2.1 K/mcL (0.6-4.6); Mean Corpuscular HGB Conc 33.1 g/dL (31.6-35.5); Mean Corpuscular Volume 87.8 fL (83.0-100.0); Mean Platelet Volume 8.7 fL (9.4-12.4); Monocytes # 0.8 K/mcL (0.0-1.3); Monocytes % 8.6 %; Neutrophils # 5.8 K/mcL (1.6-8.9); Platelet Count 272 K/mcL (140-400); Red Blood Count 4.82 M/mcL (3.82-4.97); Red Cell Distribution Width 12.6 % (11.5-14.5); Segmented Neutrophils % 62.4 %
--- NOTE | 2017-04-18 12:58 | Podiatry Progress Note ---
Date of Encounter: 04/18/17 Time of Encounter: 11:00 - Assessment and Plan (1) Skin infection Current Visit: Yes Status: Acute 04/18/2017 Assessment: #1 status post day #4 partial amputation toe #2 right foot without any constitutional signs of infection or complication #2 Dressing clean, dry and intact, patient awaiting discharge on antibiotic therapy Plan: #1 Continue IV vancomycin at this time until final cultures have resulted on surgical bone pathology #2 Patient showing MSSA growing in wound culture which is sensitive to linezolid #3 If possible, patient may go home on linezolid therapy per midline vs waiting for PICC placement for vanc infusion- SW consulted for insurance coverage 04/17/2017 Assessment: #1 status post day #3 partial amputation toe #2 right foot without any constitutional signs of infection or complication #2 healing uneventfully- dressing changed at bedside today, cleansed with saline, betadine, adaptic, 4x4 and kerlex #3 cultures final still pending history of MRSA. Most recent culture in clinic prior to surgery revealed MSSA #4 intraoperative cultures and bone culture pending- ordered blood cultures for picc placement Plan: #1 continue IV antibiotic/vancomycin until cultures prove otherwise- 3 weeks per PICC placement- will go home when PICC can be placed after negative blood cultures. #2 continue pharmacy dosed vancomycin and monitor kidney function given her history of diabetes #3 Will change dressings daily until discharge #4 Will need seen in clinic 5-7 days after discharge (2) Rash Current Visit: Yes Status: Acute Improved Patient states it is no longer an issue (3) Type 2 diabetes mellitus Current Visit: Yes Status: Chronic Will consult internal med for management Qualifiers: Diabetes mellitus complication status: with hyperglycemia Diabetes mellitus remote computer terminal operator insulin use: without remote computer terminal operator use Qualified Code(s): E11.65 - Type 2 diabetes mellitus with hyperglycemia (4) Hypertension Current Visit: Yes Status: Chronic Qualifiers: Hypertension type: essential hypertension Qualified Code(s): I10 - Essential (primary) hypertension (5) Anxiety Current Visit: Yes Status: Acute Patient is notably anxious Will write for ativan PRN TID for symptoms of anxiety Subjective Principal diagnosis: Osteomyelitis toe #2 right foot Interval history: 04/18/17 Patient noted with dressing intact to RLE. Midline in place for vancomycin infusion. Updated patient today. Wound culture returned showed MSSA- now able to prescribe patient to go home with linezolid which can be infused through midline instead of PICC. If possible, and insurance covers, will send patent out on 3 weeks of linezolid IV therapy vs awaiting PICC placement for vancomycin therapy. Patient denies any fevers, chills, n/v or flu like symptoms Microbiology, Last 48 Hours 04/15/17 09:20 Anaerobic Culture - Preliminary Second Right Toe At this time, no anaerobic growth is present. The culture will be finalized after 5 days of incubation. 04/15/17 09:20 Wound Culture - Final Second Right Toe Staphylococcus aureus Microbiology 04/15/17 09:20 Second Right Toe Wound Culture - Final Staphylococcus aureus 04/17/17MrsAlyssa Candelario underwent partial amputation of toe surgical control the infection successful. Dressing dry clean and intact on arrival with Vanc infusing to midline at bedside. no complaints of fever chills nausea vomiting. No chest pain or shortness of breath. Patient complains of minimal pain slight discomfort. Patient denies any calf pain Objective - Vital Signs Vital Signs: Vital Signs Temp Pulse Resp BP Pulse Ox 04/18/17 10:42 98.5 F 100 16 116/80 95 04/18/17 07:31 97.8 F 86 18 130/85 95 04/18/17 05:19 97.5 F L 74 16 119/77 96 04/17/17 23:04 98.0 F 87 18 119/83 96 04/17/17 22:31 95 04/17/17 19:11 98.3 F 70 16 113/60 96 04/17/17 15:03 97.8 F 83 16 107/74 95 Intake and Output 04/17/17 04/18/17 04/18/17 23:59 07:59 15:59 Intake Total 726 / 726 250 / 250 Balance 726 / 726 250 / 250 Intake: IV Fluids 250 / 250 Vancocin 1,500 MG In 250 / 250 Dextrose 5% 250 ML @ 166. 67 mls/hr IVPB Q12H [facility] Rx#:[id number] Oral 726 / 726 Other: Meal Dinner Percent of Meal Consumed 100% # Voids 1 1 Blood Glucose* 112 113 190 - Exam Exam: General Examination: CONSTITUTIONAL: Alert, oriented, in no acute distress, non-toxic. EXTREMITIES: CFT 3 seconds all toes. Edema +1 and pedal pulses palpable. SKIN: Skin with decreased turgor, decreased subcutaneous tissue, skin thin and shiny with trophic changes associated with comorbidities as described in history.. NEUROLOGIC: Grossly intact epicritic and vibratory sensation from toes to tibia, evidenced with use of monofilament 5.07 and tuning fork at 128 CPS. Patient complains of paresthesias and dysesthesias. There is no clinical evidence of loss of protective sensation. Surgical dressing in place- does not need changed at this time. Will remain intact until next office visit. - Lab Result Diagrams: 04/18/17 12:10 04/17/17 04:21 Labs: Abnormal lab results MPV 8.7 fL (9.4-12.4) L 04/18/17 12:10 ESR 61 mm/hr (0-15) H 04/14/17 18:17 PT 12.2 Seconds (9.4-12.1) H 04/14/17 18:17 BUN 22 mg/dL (7-20) H 04/17/17 04:21 BUN/Creatinine Ratio 32 (6-26) H 04/17/17 04:21 Glucose 119 mg/dL (70-99) H 04/17/17 04:21 POC Glucose 190 (58-89) H 04/18/17 10:40 Hemoglobin A1c 6.6 % (-5.6) H 04/14/17 18:17 Vancomycin Trough 9.6 mcg/mL (10-20) L 04/17/17 19:55 Microbiology, Last 48 Hours 04/15/17 09:20 Anaerobic Culture - Preliminary Second Right Toe At this time, no anaerobic growth is present. The culture will be finalized after 5 days of incubation. 04/15/17 09:20 Wound Culture - Final Second Right Toe Staphylococcus aureus - VTE Documentation of Mechanical Device: Intermittent pneumatic compression device Consult Discharge Plan - Plan Referrals: Antony Lopez DO [Primary Care Provider] -
[2017-04-18 15:22] VITALS: BP 113/77
--- NOTE | 2017-04-18 16:23 | Discharge Summary ---
Date of Encounter: 04/18/17 Time of Encounter: 12:00 - Discharge Diagnosis (1) Skin infection Priority: Secondary Status: Acute Comments: #1 Post surgical-partial amputation of toe #2 right foot- #2 being treated with IV vancomycin inpatient and will be treated with IV linezolid outpatient #2 MSSA per culture results #4 being managed uneventfully #5 pending intraop bone cultures. (2) Rash Priority: Secondary Status: Acute Comments: Resolved Treated with solucortef x1 dose (3) Type 2 diabetes mellitus Priority: Secondary Status: Chronic Comments: Managed per internal medicine Return to normal glycemic control regimen Patient to monitor for hypoglycemia with use of linezolid. Tight glucose control to promote healing Encouraged high protein diet Qualifiers: Diabetes mellitus complication status: with hyperglycemia Diabetes mellitus terminal operations supervisor insulin use: without snf use Qualified Code(s): E11.65 - Type 2 diabetes mellitus with hyperglycemia (4) Hypertension Priority: Secondary Status: Chronic Comments: Continue current treatment- no changes Qualifiers: Hypertension type: essential hypertension Qualified Code(s): I10 - Essential (primary) hypertension (5) Acute osteomyelitis of toe of right foot Priority: Primary Status: Acute Comments: s/p partial amputation of toe #2 right foot Appears to be healing without complication Dressing clean dry and intact Wound cultures positive for MSSA- pending intraop cultures Patient to leave dressing intact until office visit Will see on Monday04/21/17 Patient will go home on PO linezolid therapy Q12H for 14 days Call with any adverse reactions Patient will need to ambulate with post op shoe. Patient has been provided with prescription for [place] per Internal medicine - Discharge Medications Prescriptions: HYDROcodone/Acet 5/325 mg [[place] 5-325 mg] 1 tab PO Q4H PRN #20 tab PRN Reason: Pain Linezolid 600 mg PO BID #28 tablet Linezolid 600 mg PO BID #2 tablet Home Medications: Aspirin Enteric Coated [Aspirin EC] 81 mg PO DAILY 06/06/16 [History] metFORMIN [Glucophage] 500 mg PO BIDWM 06/06/16 [History] Losartan/Hydrochlorothiazide [Hyzaar 100-25 Tablet] 1 tab PO DAILY 10/20/16 [ History] HYDROcodone/Acet 5/325 mg [[place] 5-325 mg] 1 tab PO Q4H PRN #20 tab 04/18/17 [Rx ] Linezolid 600 mg PO BID #2 tablet 04/18/17 [Rx] Linezolid 600 mg PO BID #28 tablet 04/18/17 [Rx] Allergies/Adverse Reactions: Allergies No Known Allergies Allergy (Verified 10/20/16 08:13) Labs on day of discharge: Labs from last 24 hours 04/18/17 04/18/17 04/18/17 12:10 10:40 07:29 WBC 9.3 RBC 4.82 Hgb 14.0 D Hct 42.3 MCV 87.8 MCH 29.0 MCHC 33.1 RDW 12.6 Plt Count 272 MPV 8.7 L Immature Gran % 1.0 Seg Neutrophils % 62.4 Lymphocytes % 23.0 Monocytes % 8.6 Eosinophils % 4.2 Basophils % 0.8 Neutrophils # 5.8 Lymphocytes # 2.1 Monocytes # 0.8 Eosinophils # 0.4 Basophils # 0.1 POC Glucose 190 H 113 H Vancomycin Trough 04/17/17 04/17/17 04/17/17 21:33 19:55 16:05 WBC RBC Hgb Hct MCV MCH MCHC RDW Plt Count MPV Immature Gran % Seg Neutrophils % Lymphocytes % Monocytes % Eosinophils % Basophils % Neutrophils # Lymphocytes # Monocytes # Eosinophils # Basophils # POC Glucose 112 H 125 H Vancomycin Trough 9.6 L Preliminary micro results at discharge 04/15/17 09:20 Anaerobic Culture - Preliminary Second Right Toe At this time, no anaerobic growth is present. The culture will be finalized after 5 days of incubation. Date of admission: 04/14/17 15:56 Primary care physician: Antony Lopez Consults: 04/14/17 17:54 Consult to Hospitalist [CONS] Routine Consulting Provider: Ella Berg Reason for Consult: Diabetes mellitus type 2 with multiple comorbidities Time Notified: 18:00 Call Completed: Yes 04/17/17 07:51 Consult to Punchboard Stuffer [CONS] Routine Reason for SW Consult: IV antibiotic home infusion 04/17/17 13:18 Consult to Punchboard Stuffer [CONS] Stat Reason for SW Consult: Home infusion of Vancomycin daily with wound care 04/18/17 12:29 Consult to Punchboard Stuffer [CONS] Stat Reason for SW Consult: can go home with IV linezolid if approved. Will not need PICC if approved. Wound care and dressing changes Discharging clinician: Stephanie Cruz Anticipated date of discharge: 04/18/17 - Patient Status Disposition: Home, Self-Care Condition: Good Functional capacity at discharge: independent ambulation Overall status at discharge: patient is progressing back to baseline - Discharge Instructions Instructions: Diabetes Mellitus Type 2 in Adults (DC) Follow Up With: Gordon Davey DPM [Partnered Physician] - 04/21/17 1:00 pm Additional Instructions: Will need to follow up with PCP in 1-2 weeks for continued management and update of procedures - Diet and Activity Activity: other (limit weight bearing to right foot as much as possible. Ambulate with post op shoe only ) Diet: advance to your usual diet, diabetic diet - Hospital Course Hospital course: Ms. Candelario is a 61 year old female who was admitted on 04/14/2017 following a podiatry clinic post operative visit of toe #2. Patient was admitted to schedule for partial amputation of toe #2 right foot. She was noted to have edema, erythema, drainage and pain of toe in the office. Patient had previous cultures of MRSA to this wound. Patient was admitted and underwent #1 distal aspect toe #2 right foot. #2 middle phalanx for bone culture with dr davey on which was uneventful. Patient was started on IV vancomycin and intraoperative cultures were sent. Patient was followed per internal medicine for management of DM and HTN which was uneventful and there were no changes. Patient was also treated for a full body rash of unknown cause on admission with solucortef, the rash had been ongoing for a couple of weeks and patient complained of severe itching, patient states it is now resolved. Blood cultures are pending however all other labs do not indicate septic infection. Patient wound cultures returned today positive for MSSA sensitive to linezolid. The decision was made in conjunction with to transition the patient to PO linezolid and send home. Patient is agreeable. Intraoperative bone cultures are still pending at this time. Patient is to leave dressing intact until seen in clinic by on monday. Patient is to take linezolid PO 600mg BID for 14 days. Instructed to monitor for hypoglycemia with administration of linezolid. Patient to call with any fevers, chills, n/v or flu like symptoms or calf pain. Verbalized understanding. Patient is in good condition today. No issues to surgical site. Labs are all benign. Vital signs stable. Pharmacy is unable to obtain linezolid until tomorrow. Patient already had dose of vancomycin today. Ok for discharge. Will start linezolid in AM Vital Signs Temp Pulse Resp BP Pulse Ox 04/18/17 15:20 97.8 F 97 16 113/77 98 04/18/17 10:42 98.5 F 100 16 116/80 95 04/18/17 07:31 97.8 F 86 18 130/85 95 04/18/17 05:19 97.5 F L 74 16 119/77 96 04/17/17 23:04 98.0 F 87 18 119/83 96 04/17/17 22:31 95 04/17/17 19:11 98.3 F 70 16 113/60 96 Intake and Output 04/18/17 04/18/17 04/18/17 07:59 15:59 23:59 Intake Total 250 / 250 480 / 480 Output Total 0 / 0 Balance 250 / 250 480 / 480 Intake: IV Fluids 250 / 250 Vancocin 1,500 MG In 250 / 250 Dextrose 5% 250 ML @ 166. 67 mls/hr IVPB Q12H CAROLE Rx#:[id number] Oral 480 / 480 Output: Urine 0 / 0 Other: Meal Breakfast Percent of Meal Consumed 100% # Voids 1 Blood Glucose* 113 190 113 Short CBC 04/18/17 Range/Units 12:10 WBC 9.3 (4.3-11.1) K/mcL Hgb 14.0 D (11.5-15.4) g/dL Hct 42.3 (35.3-44.9) % Plt Count 272 (140-400) K/mcL Neutrophils # 5.8 (1.6-8.9) K/mcL Patient Name: Sasha Candelario Date of : 1955 Patient Status: Inpatient Attending Provider: Gordon Davey Date: 04/15/17 09:04 Initialization Date: 04/15/17 09:04 Date of procedure: 04/15/17 Pre-op diagnosis: Osteomyelitis toe #2 right Post-op diagnosis: same Procedure: 04/15/17 09:04 #1 partial amputation of toe at the level of the proximal phalangeal joint #2, toe right foot Implants: None Complications: None Anesthesia: MAC, local Local Anesthetics: 0.25% Sensorcaine HCL SubQ (cc) Surgeon: Gordon Davey Estimated blood loss (cc): 5 Tourniquet Time (Minutes): 0 Specimen: #1 distal aspect toe #2 right foot. #2 middle phalanx for bone culture. Condition: stable Disposition: floor Procedure in Detail: 04/15/17 09:05 Details in summary of the procedure: The patient was brought to the surgical suite. A sign in procedure was performed. The patient was then transferred to the surgical table and positioned probably safely securely. The right foot was elevated on a foam block. Anesthetic timeout was taken. The right ankle was prepped with alcohol 3 times in a modified ankle block was carried out with local anesthetic without difficulty or complication. No tourniquet was used. The right foot was then prepped and draped in usual sterile manner. Surgical timeout was taken. Inspection of the second toe revealed a dehiscence of the distal aspect of the second toe without active drainage. Patient incision was planned with a skin scribe beginning in the medial aspect of the proximal interphalangeal joint and brought distally and then plantarly and transverse fashion bleeding the junction of the lateral plantar skin on the lateral aspect of the toe and then proximally in a linear fashion proximally to the proximal phalanx. Satisfied that this incision would be appropriate the operation began using a #15 scalpel blade an incision was made on the medial aspect of the second toe directly down to the surgical neck of the proximal phalanx and brought distally once reaching the distal aspect of the middle phalanx purulent drainage was expressed immediately to the medial aspect of the incision. The incision was continued plantarly. At that point cultures were taken swab aerobic and anaerobic of purulent drainage. Using a #15 scalpel blade fresh incision was continued from the plantar aspect to the lateral aspect of the toe at the junction of the lateral dorsal skin and then proximally in linear fashion to the surgical neck of the proximal phalanx a transverse incision was then begun on the dorsal aspect just at the level of the middle phalanx from dorsal medial to dorsal lateral. The distal aspect of the second toe was then amputated without difficulty or complication exposing the middle phalanx which is noted to be of abnormal color texture density and irregular character. The wound was flushed with copious amounts sterile saline. The middle phalanx was then isolated at the level of the PIPJ and dividing the collateral medial lateral ligaments dorsal and plantar the middle phalanx was then resected and sent immediately for culture. The head of the proximal phalanx was noted to be absolutely pristine and normal color texture density character cartilaginous surfaces were intact and there was no evidence of any necrosis remaining of any soft tissue within the wound. It was thoroughly inspected and flushed with copious amounts sterile saline at least 250 mL. The remaining soft tissue the wound was of normal color texture and density without evidence of any necrosis. As at that point decision to close the wound loosely was made. Using a 3-0 Vicryl the flexor tendon was then reanastomosed the dorsal tendon over the distal aspect of the proximal phalanx. The skin was then loosely closed with 3-0 Prolene. There was no active bleeding that necessitated use of Bovie ligature. The wound noted to bleed freely again without active hemostasis. Dorsal and plantar flaps remained viable with a Initial time of less than 3 seconds after closure. The wound was cleansed with saline and peroxide. And dressed with sterile Adaptic 4 x 4's and Kerlix and a mild compressive dressing. Occasions, none estimated blood loss less than 5ml. Specimen distal aspect of tumor 2 toe right foot. Bone culture middle phalanx #2 toe. Swab cultures aerobe and anaerobe right second toe. The patient was then sent to holding and then onto the floor with vital signs stable without complication. 04/15/17 09:11 Time spent discussing smoking cessation with patient: 3 to 10 minutes - Time Spent with Patient Total time spent providing and/or coordinating discharge services: Less than 30 minutes - VTE Documentation of Mechanical Device: Intermittent pneumatic compression device
[2017-04-18] MEDS ORDERED: Aminoglycoside Consult 1 EACH MC ONE (17:25)
== END 2017-04-18 17:26 | disposition home or self-care (01) | DRG 857 ==
LOC: 3ANU 15:56
PROVIDERS: ADMIT Podiatrist Foot Surgery; ATTEND Podiatrist Foot Surgery

== ENCOUNTER 2021-04-30 15:26 | Inpatient (IN) ==
[2021-04-30] MEDS ORDERED: Vancomycin 1,500 MG/265 ML IV.SOLN IVPB ONE ×2 (16:14→21:00)
[2021-04-30] MEDS ORDERED: Piperacillin/Tazobactam 3.375 GM in 0.9 % Sodium Chloride Mini Bag 100 ML IVPB ONE (16:14)
[2021-04-30 16:25] LABS: Basophils # 0.1 K/mcL (0.0-0.2); Basophils % 0.5 %; Eosinophils # 0.8 K/mcL (0.0-0.6); Eosinophils % 7.9 %; Hematocrit 39.4 % (35.3-44.9); Hemoglobin 13.3 g/dL (11.5-15.4); Immature Granulocytes % 0.5 % (0-4); Lymphocytes # 2.2 K/mcL (0.6-4.6); Lymphocytes % 23.6 %; Mean Corpuscular HGB Conc 33.8 g/dL (31.6-35.5); Mean Corpuscular Hemoglobin 28.7 pg (28.0-33.3); Mean Corpuscular Volume 85.1 fL (83.0-100.0); Mean Platelet Volume 9.2 fL (9.4-12.4); Monocytes # 0.8 K/mcL (0.0-1.3); Monocytes % 8.6 %; Neutrophils # 5.6 K/mcL (1.6-8.9); Platelet Count 296 K/mcL (140-400); Red Blood Count 4.63 M/mcL (3.82-4.97); Red Cell Distribution Width 12.9 % (11.5-14.5); Segmented Neutrophils % 58.9 %; White Blood Count 9.4 K/mcL (4.3-11.1)
[2021-04-30 16:46] LABS: BUN/Creatinine Ratio 35 (6-26); Blood Urea Nitrogen 27 mg/dL (8-23); C-Reactive Protein 87 mg/L (Less than 10); Calcium 9.1 mg/dL (8.6-10.3); Carbon Dioxide 24 mEq/L (23-29); Chloride 100 mEq/L (98-107); Glucose 161 mg/dL (70-105); Osmolality,Calculated 295 (280-300); Potassium 2.9 mEq/L (3.5-5.1); Sodium 138 mEq/L (136-145); eGFR For African Americans > 60 (> 60); eGFR For Non-African Americans > 60 (> 60)
[2021-04-30] MEDS ORDERED: 0.9 % Sodium Chloride 1,000 ML IVC ONE (17:26)
[2021-04-30] MEDS ORDERED: *HR* Dextrose 50 % in Water (Vial) 50 ML VIAL IVP PRN (17:33)
[2021-04-30] MEDS ORDERED: Ondansetron 4 MG/2 ML VIAL IVP PRN (17:33)
[2021-04-30] MEDS ORDERED: Dextrose Gel 15 GM/37.5 ML TUBE PO PRN ×2 (17:33)
[2021-04-30] MEDS ORDERED: D5% in Water 1,000 ML IVC PRN (17:33)
[2021-04-30] MEDS ORDERED: Acetaminophen 325 MG TABLET PO PRN (17:33)
[2021-04-30] MEDS ORDERED: Naloxone 0.4 MG/ML INJ IVP PRN (17:33)
[2021-04-30] MEDS ORDERED: Insulin DETEMIR 100 UNIT/ML X5UNITS SUBQ SCH (21:00)
[2021-04-30] MEDS ORDERED: Potassium Chloride Elixir 20 MEQ/15 ML UDC PO ONE (21:00)
[2021-05-01] MEDS: *HR* HYDROcodone/Acet 5/325 mg TABLET PO PRN ×3 (00:09→23:38)
[2021-05-01] MEDS: Piperacillin/Tazobactam 3.375 GM in 0.9 % Sodium Chloride Mini Bag 100 ML IVPB SCH ×4 (00:09→23:37)
[2021-05-01] MEDS: traZODone 50 MG TABLET PO SCH ×2 (00:09→21:44)
[2021-05-01] MEDS: *HR* Heparin 5,000 UNIT/ML VIAL SQ SCH ×2 (06:36→18:02)
[2021-05-01 06:44] LABS: Basophils # 0.1 K/mcL (0.0-0.2); Basophils % 0.5 %; Eosinophils # 0.8 K/mcL (0.0-0.6); Eosinophils % 8.2 %; Hematocrit 34.9 % (35.3-44.9); Hemoglobin 11.8 g/dL (11.5-15.4); Immature Granulocytes % 0.5 % (0-4); Lymphocytes # 2.4 K/mcL (0.6-4.6); Lymphocytes % 24.2 %; Mean Corpuscular HGB Conc 33.8 g/dL (31.6-35.5); Mean Corpuscular Hemoglobin 29.2 pg (28.0-33.3); Mean Corpuscular Volume 86.4 fL (83.0-100.0); Mean Platelet Volume 9.2 fL (9.4-12.4); Monocytes # 0.8 K/mcL (0.0-1.3); Monocytes % 8.3 %; Neutrophils # 5.8 K/mcL (1.6-8.9); Platelet Count 230 K/mcL (140-400); Red Blood Count 4.04 M/mcL (3.82-4.97); Red Cell Distribution Width 12.9 % (11.5-14.5); Segmented Neutrophils % 58.3 %
[2021-05-01 07:29] LABS: BUN/Creatinine Ratio 30 (6-26); Blood Urea Nitrogen 16 mg/dL (8-23); Calcium 8.1 mg/dL (8.6-10.3); Carbon Dioxide 20 mEq/L (23-29); Chloride 104 mEq/L (98-107); Glucose 120 mg/dL (70-105); Magnesium 1.7 mg/dL (1.6-2.6); Osmolality,Calculated 286 (280-300); Phosphorous 3.6 mg/dL (2.7-4.5); Potassium 3.1 mEq/L (3.5-5.1); Sodium 137 mEq/L (136-145); eGFR For African Americans > 60 (> 60); eGFR For Non-African Americans > 60 (> 60)
[2021-05-01] MEDS ORDERED: Potassium Chloride Elixir 20 MEQ/15 ML UDC PO ONE (08:00)
[2021-05-01] MEDS: Insulin LISPRO 300 UNITS/3 ML VIAL SUBQ SCH ×2 (08:56→11:49)
[2021-05-01] MEDS: Vancomycin 1,250 MG/262.5 ML IV.SOLN IVPB SCH ×2 (09:08→21:44)
[2021-05-01] MEDS: Aspirin Enteric Coated 81 MG Tablet PO SCH (11:47)
[2021-05-01] MEDS: hydroCHLOROthiazide 25 MG TABLET PO SCH (11:47)
[2021-05-01] MEDS: PARoxetine 10 MG TABLET PO SCH (11:47)
[2021-05-01] MEDS: *HR* Metformin 850 MG TABLET PO SCH ×2 (12:12→18:02)
[2021-05-02 02:30] LABS: Basophils # 0.1 K/mcL (0.0-0.2); Basophils % 0.5 %; Eosinophils # 0.5 K/mcL (0.0-0.6); Eosinophils % 5.5 %; Hematocrit 31.8 % (35.3-44.9); Hemoglobin 10.4 g/dL (11.5-15.4); Immature Granulocytes % 0.7 % (0-4); Lymphocytes # 2.6 K/mcL (0.6-4.6); Lymphocytes % 26.8 %; Mean Corpuscular HGB Conc 32.7 g/dL (31.6-35.5); Mean Corpuscular Volume 85.5 fL (83.0-100.0); Monocytes # 0.7 K/mcL (0.0-1.3); Monocytes % 7.5 %; Neutrophils # 5.8 K/mcL (1.6-8.9); Platelet Count 227 K/mcL (140-400); Red Blood Count 3.72 M/mcL (3.82-4.97); Red Cell Distribution Width 12.8 % (11.5-14.5); White Blood Count 9.8 K/mcL (4.3-11.1)
[2021-05-02 02:49] LABS: BUN/Creatinine Ratio 25 (6-26); Blood Urea Nitrogen 13 mg/dL (8-23); Calcium 8.3 mg/dL (8.6-10.3); Carbon Dioxide 24 mEq/L (23-29); Chloride 103 mEq/L (98-107); Glucose 159 mg/dL (70-105); Osmolality,Calculated 287 (280-300); Potassium 3.3 mEq/L (3.5-5.1); Sodium 137 mEq/L (136-145); eGFR For African Americans > 60 (> 60); eGFR For Non-African Americans > 60 (> 60)
[2021-05-02] MEDS: *HR* Heparin 5,000 UNIT/ML VIAL SQ SCH ×2 (07:02→17:26)
[2021-05-02] MEDS ORDERED: Potassium Chloride Elixir 20 MEQ/15 ML UDC PO ONE (07:33)
[2021-05-02] MEDS: hydroCHLOROthiazide 25 MG TABLET PO SCH (08:17)
[2021-05-02] MEDS: Aspirin Enteric Coated 81 MG Tablet PO SCH (08:17)
[2021-05-02] MEDS: *HR* Metformin 850 MG TABLET PO SCH ×2 (08:18→17:26)
[2021-05-02] MEDS: Vancomycin 1,250 MG/262.5 ML IV.SOLN IVPB SCH (08:18)
[2021-05-02] MEDS: Piperacillin/Tazobactam 3.375 GM in 0.9 % Sodium Chloride Mini Bag 100 ML IVPB SCH ×2 (08:18→17:25)
[2021-05-02] MEDS: PARoxetine 10 MG TABLET PO SCH (08:18)
[2021-05-02] MEDS ORDERED: ROPIVACAINE/PF/NS 0.25% 1 EACH SYRINGE INTRAART ONE (11:34)
[2021-05-02] MEDS ORDERED: Lidocaine -MPF 2% 2 ML VIAL ONE (12:15)
[2021-05-02] MEDS ORDERED: *HR* FentaNYL (PF) 100 MCG/2 ML VIAL ONE (12:15)
[2021-05-02] MEDS ORDERED: Acetaminophen IV 1,000 MG/100 ML BAG IVPB ONE (12:33)
[2021-05-02] MEDS ORDERED: Famotidine 20 MG/2 ML VIAL ONE (12:33)
[2021-05-02] MEDS ORDERED: *HR* Midazolam HCl 2 MG/2 ML VIAL ONE (13:42)
[2021-05-02] MEDS ORDERED: EPHEDrine 50 MG/ML VIAL ONE (13:52)
[2021-05-02] MEDS ORDERED: *HR* Propofol 200 MG/20 ML VIAL IVP ONE (14:29)
[2021-05-02] MEDS ORDERED: Acetaminophen 325 MG TABLET PO PRN (14:54)
[2021-05-02] MEDS ORDERED: Ondansetron 4 MG/2 ML VIAL IVP PRN (14:54)
[2021-05-02] MEDS ORDERED: Naloxone 0.4 MG/ML INJ IVP PRN (14:54)
[2021-05-02] MEDS ORDERED: Vancomycin 1,250 MG/262.5 ML IV.SOLN IVPB SCH (21:00)
[2021-05-02] MEDS: *HR* HYDROcodone/Acet 5/325 mg TABLET PO PRN (21:12)
[2021-05-02] MEDS: traZODone 50 MG TABLET PO SCH (21:12)
[2021-05-03] MEDS: Piperacillin/Tazobactam 3.375 GM in 0.9 % Sodium Chloride Mini Bag 100 ML IVPB SCH ×3 (00:38→17:38)
[2021-05-03] MEDS: *HR* HYDROcodone/Acet 5/325 mg TABLET PO PRN ×3 (03:36→22:52)
[2021-05-03] MEDS: *HR* Heparin 5,000 UNIT/ML VIAL SQ SCH ×2 (06:38→17:39)
[2021-05-03 08:33] LABS: Basophils # 0.1 K/mcL (0.0-0.2); Basophils % 0.7 %; Eosinophils # 0.4 K/mcL (0.0-0.6); Eosinophils % 4.3 %; Hematocrit 31.2 % (35.3-44.9); Hemoglobin 10.5 g/dL (11.5-15.4); Immature Granulocytes % 1.2 % (0-4); Lymphocytes # 2.1 K/mcL (0.6-4.6); Lymphocytes % 21.8 %; Mean Corpuscular HGB Conc 33.7 g/dL (31.6-35.5); Mean Corpuscular Hemoglobin 29.1 pg (28.0-33.3); Mean Corpuscular Volume 86.4 fL (83.0-100.0); Monocytes # 0.6 K/mcL (0.0-1.3); Monocytes % 6.4 %; Neutrophils # 6.2 K/mcL (1.6-8.9); Platelet Count 222 K/mcL (140-400); Red Blood Count 3.61 M/mcL (3.82-4.97); Red Cell Distribution Width 12.5 % (11.5-14.5); Segmented Neutrophils % 65.6 %; White Blood Count 9.5 K/mcL (4.3-11.1)
[2021-05-03] MEDS: *HR* Metformin 850 MG TABLET PO SCH ×2 (09:20→17:39)
[2021-05-03] MEDS: hydroCHLOROthiazide 25 MG TABLET PO SCH (09:20)
[2021-05-03] MEDS: Aspirin Enteric Coated 81 MG Tablet PO SCH (09:20)
[2021-05-03] MEDS: PARoxetine 10 MG TABLET PO SCH (09:21)
[2021-05-03 09:39] LABS: BUN/Creatinine Ratio 21 (6-26); Blood Urea Nitrogen 10 mg/dL (8-23); Carbon Dioxide 27 mEq/L (23-29); Chloride 106 mEq/L (98-107); Glucose 118 mg/dL (70-105); Osmolality,Calculated 290 (280-300); Potassium 3.9 mEq/L (3.5-5.1); Sodium 140 mEq/L (136-145); Vancomycin,Trough 9 mcg/mL (5-10); eGFR For African Americans > 60 (> 60); eGFR For Non-African Americans > 60 (> 60)
[2021-05-03 11:24] LABS: Calcium 8.1 mg/dL (8.6-10.3)
[2021-05-03] MEDS: traZODone 50 MG TABLET PO SCH (22:53)
[2021-05-04] MEDS: Piperacillin/Tazobactam 3.375 GM in 0.9 % Sodium Chloride Mini Bag 100 ML IVPB SCH ×2 (00:13→07:46)
[2021-05-04 03:23] LABS: Basophils # 0.1 K/mcL (0.0-0.2); Basophils % 0.7 %; Eosinophils # 0.6 K/mcL (0.0-0.6); Eosinophils % 6.6 %; Hematocrit 31.2 % (35.3-44.9); Hemoglobin 10.4 g/dL (11.5-15.4); Immature Granulocytes % 1.5 % (0-4); Lymphocytes # 2.6 K/mcL (0.6-4.6); Lymphocytes % 27.7 %; Mean Corpuscular HGB Conc 33.3 g/dL (31.6-35.5); Mean Corpuscular Hemoglobin 28.7 pg (28.0-33.3); Mean Platelet Volume 8.9 fL (9.4-12.4); Monocytes # 0.6 K/mcL (0.0-1.3); Monocytes % 6.1 %; Neutrophils # 5.5 K/mcL (1.6-8.9); Platelet Count 242 K/mcL (140-400); Red Blood Count 3.63 M/mcL (3.82-4.97); Red Cell Distribution Width 12.6 % (11.5-14.5); Segmented Neutrophils % 57.4 %; White Blood Count 9.5 K/mcL (4.3-11.1)
[2021-05-04 03:41] LABS: BUN/Creatinine Ratio 19 (6-26); Blood Urea Nitrogen 9 mg/dL (8-23); Calcium 8.4 mg/dL (8.6-10.3); Carbon Dioxide 27 mEq/L (23-29); Chloride 103 mEq/L (98-107); Glucose 124 mg/dL (70-105); Osmolality,Calculated 288 (280-300); Potassium 3.1 mEq/L (3.5-5.1); Sodium 139 mEq/L (136-145); eGFR For African Americans > 60 (> 60); eGFR For Non-African Americans > 60 (> 60)
[2021-05-04] MEDS: *HR* Heparin 5,000 UNIT/ML VIAL SQ SCH (05:03)
[2021-05-04] MEDS: *HR* HYDROcodone/Acet 5/325 mg TABLET PO PRN (05:03)
[2021-05-04 07:47] VITALS: TEMP 97.9
[2021-05-04] MEDS: *HR* Metformin 850 MG TABLET PO SCH (07:48)
[2021-05-04] MEDS: PARoxetine 10 MG TABLET PO SCH (07:48)
[2021-05-04] MEDS: Aspirin Enteric Coated 81 MG Tablet PO SCH (07:48)
[2021-05-04] MEDS: hydroCHLOROthiazide 25 MG TABLET PO SCH (07:48)
[2021-05-04 11:20] VITALS: BP 130/86; PULSE 83; O2SAT 95
== END 2021-05-04 16:58 | disposition home or self-care (01) | DRG 623 ==
LOC: EMEROOARM 15:26 → 3NENU 15:26 → SUATTDRO 17:44 → 3NENU 18:14
PROVIDERS: ADMIT Family Medicine; ATTEND Internal Medicine

== ENCOUNTER 2021-06-22 16:26 | Inpatient (IN) ==
[2021-06-22 19:03] LABS: BUN/Creatinine Ratio 22 (6-26); Blood Urea Nitrogen 16 mg/dL (8-23); Calcium 9.8 mg/dL (8.6-10.3); Carbon Dioxide 25 mEq/L (23-29); Chloride 100 mEq/L (98-107); Glucose 126 mg/dL (70-105); Osmolality,Calculated 289 (280-300); Potassium 4.2 mEq/L (3.5-5.1); Sodium 138 mEq/L (136-145); eGFR For African Americans > 60 (> 60); eGFR For Non-African Americans > 60 (> 60)
[2021-06-22] MEDS ORDERED: Cefepime HCl 2,000 MG in Water for inj. (sterile) 20 ML IVP STA (19:36)
[2021-06-22] MEDS ORDERED: Vancomycin 1,500 MG/265 ML IV.SOLN IVPB ONE (20:00)
[2021-06-22] MEDS ORDERED: Naloxone 0.4 MG/ML INJ IVP PRN (20:06)
[2021-06-22] MEDS ORDERED: *HR* HYDROcodone/Acet 5/325 mg TABLET PO PRN (20:06)
[2021-06-22] MEDS ORDERED: *HR* OxyCODONE Immed Rel 5 MG TABLET PO PRN (20:06)
[2021-06-22] MEDS ORDERED: *HR* Promethazine 25 MG/ML VIAL IM PRN (20:06)
[2021-06-22] MEDS ORDERED: Melatonin 3 MG TABLET PO PRN (20:06)
[2021-06-22] MEDS ORDERED: Ondansetron 4 MG/2 ML VIAL IVP PRN (20:06)
[2021-06-22] MEDS: Ringers Solution, Lactated 1,000 ML IVC SCH (22:20)
[2021-06-22] MEDS: Acetaminophen 325 MG TABLET PO PRN (23:52)
[2021-06-22] MEDS: traZODone 50 MG TABLET PO SCH (23:52)
[2021-06-23] MEDS: Cefepime HCl 2,000 MG in Water for inj. (sterile) 20 ML IVP SCH ×2 (03:30→17:16)
[2021-06-23] MEDS: Ringers Solution, Lactated 1,000 ML IVC SCH (05:47)
[2021-06-23 08:04] LABS: Basophils # 0.1 K/mcL (0.0-0.2); Basophils % 0.5 %; Eosinophils # 0.3 K/mcL (0.0-0.6); Eosinophils % 2.5 %; Hematocrit 32.7 % (35.3-44.9); Hemoglobin 10.6 g/dL (11.5-15.4); Immature Granulocytes % 0.4 % (0-4); Lymphocytes % 17.1 %; Mean Corpuscular HGB Conc 32.4 g/dL (31.6-35.5); Mean Corpuscular Volume 89.3 fL (83.0-100.0); Monocytes % 8.6 %; Neutrophils # 8.1 K/mcL (1.6-8.9); Platelet Count 281 K/mcL (140-400); Red Blood Count 3.66 M/mcL (3.82-4.97); Red Cell Distribution Width 13.5 % (11.5-14.5); Segmented Neutrophils % 70.9 %; White Blood Count 11.5 K/mcL (4.3-11.1)
[2021-06-23 08:10] LABS: INR 1.3; Prothrombin Time 14.4 Seconds (9.4-12.1)
[2021-06-23 08:30] LABS: BUN/Creatinine Ratio 26 (6-26); Blood Urea Nitrogen 14 mg/dL (8-23); Calcium 8.7 mg/dL (8.6-10.3); Carbon Dioxide 24 mEq/L (23-29); Chloride 104 mEq/L (98-107); Chol/HDL Ratio 3.1 (0-4.9); Cholesterol 151 mg/dL (< 200); Glucose 115 mg/dL (70-105); HDL Cholesterol 48 mg/dL (40-59); LDL Cholesterol,Calculated 77 mg/dL (< 100); Magnesium 1.8 mg/dL (1.6-2.6); Osmolality,Calculated 285 (280-300); Potassium 3.4 mEq/L (3.5-5.1); Sodium 137 mEq/L (136-145); Triglycerides 129 mg/dL (< 150); eGFR For African Americans > 60 (> 60); eGFR For Non-African Americans > 60 (> 60)
[2021-06-23] MEDS: Vancomycin 1,250 MG/262.5 ML IV.SOLN IVPB SCH ×2 (08:41→20:20)
[2021-06-23] MEDS: Aspirin Enteric Coated 81 MG Tablet PO SCH (08:43)
[2021-06-23] MEDS ORDERED: Dextrose Gel 15 GM/37.5 ML TUBE PO PRN ×4 (19:14→20:49)
[2021-06-23] MEDS ORDERED: D5% in Water 1,000 ML IVC PRN ×2 (19:14→20:49)
[2021-06-23] MEDS ORDERED: *HR* Dextrose 50 % in Water (Syg) 50 ML SYRINGE IVP PRN ×2 (19:14→20:49)
[2021-06-23] MEDS: traZODone 50 MG TABLET PO SCH (20:20)
[2021-06-23 20:31] LABS: Estimated Average Glucose 154 mg/dl
[2021-06-23] MEDS: Acetaminophen 325 MG TABLET PO PRN (21:19)
[2021-06-24] MEDS: Cefepime HCl 2,000 MG in Water for inj. (sterile) 20 ML IVP SCH ×4 (00:01→18:07)
[2021-06-24 01:24] LABS: Hematocrit 30.7 % (35.3-44.9); Hemoglobin 10.1 g/dL (11.5-15.4); Mean Corpuscular HGB Conc 32.9 g/dL (31.6-35.5); Mean Corpuscular Volume 88.2 fL (83.0-100.0); Mean Platelet Volume 8.8 fL (9.4-12.4); Platelet Count 286 K/mcL (140-400); Red Blood Count 3.48 M/mcL (3.82-4.97); Red Cell Distribution Width 13.2 % (11.5-14.5); White Blood Count 10.8 K/mcL (4.3-11.1)
[2021-06-24 01:42] LABS: BUN/Creatinine Ratio 25 (6-26); Blood Urea Nitrogen 13 mg/dL (8-23); Calcium 8.6 mg/dL (8.6-10.3); Carbon Dioxide 25 mEq/L (23-29); Chloride 105 mEq/L (98-107); Glucose 161 mg/dL (70-105); Osmolality,Calculated 290 (280-300); Potassium 3.4 mEq/L (3.5-5.1); Sodium 138 mEq/L (136-145); eGFR For African Americans > 60 (> 60); eGFR For Non-African Americans > 60 (> 60)
[2021-06-24] MEDS: *HR* Enoxaparin 40 MG/0.4 ML SYRINGE SQ SCH (06:10)
[2021-06-24] MEDS: Insulin LISPRO 300 UNITS/3 ML VIAL SUBQ SCH ×5 (07:29→19:54)
[2021-06-24] MEDS: hydroCHLOROthiazide 25 MG TABLET PO SCH (08:21)
[2021-06-24] MEDS: PARoxetine 10 MG TABLET PO SCH (08:21)
[2021-06-24] MEDS: Vancomycin 1,250 MG/262.5 ML IV.SOLN IVPB SCH (08:39)
[2021-06-24] MEDS: Aspirin Enteric Coated 81 MG Tablet PO SCH (08:41)
[2021-06-24] MEDS ORDERED: *HR* FentaNYL (PF) 100 MCG/2 ML VIAL ONE (14:16)
[2021-06-24] MEDS ORDERED: Lidocaine -MPF 2% 5 ML VIAL ONE (14:17)
[2021-06-24] MEDS ORDERED: Ondansetron 4 MG/2 ML VIAL ONE (14:17)
[2021-06-24] MEDS ORDERED: *HR* Propofol 200 MG/20 ML VIAL IVP ONE (14:17)
[2021-06-24] MEDS ORDERED: Ketorolac 30 MG/ML VIAL ONE (14:18)
[2021-06-24] MEDS ORDERED: Bupivacaine/EPI 1:200k 0.25% 50 ML VIAL ONE (14:24)
[2021-06-24] MEDS ORDERED: Lidocaine/EPI 1:100k 1% 50 ML VIAL ONE (14:25)
[2021-06-24] MEDS ORDERED: Lidocaine 1% 20 ML MDV ONE (14:25)
[2021-06-24] MEDS ORDERED: *HR* OxyCODONE Immed Rel 5 MG TABLET PO PRN (14:26)
[2021-06-24] MEDS ORDERED: *HR* HYDROmorphone PF 0.5 MG/0.5 ML SYRINGE IVP PRN (14:26)
[2021-06-24] MEDS ORDERED: Famotidine 20 MG/2 ML VIAL IVP ONE (14:26)
[2021-06-24] MEDS ORDERED: Ondansetron 4 MG/2 ML VIAL IVP PRN (14:26)
[2021-06-24] MEDS ORDERED: Acetaminophen IV 1,000 MG/100 ML BAG IVPB ONE (14:30)
[2021-06-24] MEDS ORDERED: Ringers Solution, Lactated 1,000 ML IVC SCH (14:30)
[2021-06-24] MEDS ORDERED: Pregabalin 50 MG CAPSULE PO ONE (14:45)
[2021-06-24] MEDS: traZODone 50 MG TABLET PO SCH (19:53)
[2021-06-24] MEDS: Vancomycin 1,750 MG/517.5 ML IV.SOLN IVPB SCH (20:01)
[2021-06-24] MEDS: Acetaminophen 325 MG TABLET PO PRN (22:08)
[2021-06-25] MEDS: Cefepime HCl 2,000 MG in Water for inj. (sterile) 20 ML IVP SCH ×2 (00:31→09:28)
[2021-06-25] MEDS: *HR* Enoxaparin 40 MG/0.4 ML SYRINGE SQ SCH (05:14)
[2021-06-25 05:46] LABS: Hematocrit 30.5 % (35.3-44.9); Hemoglobin 10.1 g/dL (11.5-15.4); Mean Corpuscular HGB Conc 33.1 g/dL (31.6-35.5); Mean Corpuscular Hemoglobin 29.1 pg (28.0-33.3); Mean Corpuscular Volume 87.9 fL (83.0-100.0); Mean Platelet Volume 9.1 fL (9.4-12.4); Platelet Count 317 K/mcL (140-400); Red Blood Count 3.47 M/mcL (3.82-4.97); White Blood Count 8.9 K/mcL (4.3-11.1)
[2021-06-25 06:07] LABS: BUN/Creatinine Ratio 33 (6-26); Blood Urea Nitrogen 17 mg/dL (8-23); Calcium 8.8 mg/dL (8.6-10.3); Carbon Dioxide 23 mEq/L (23-29); Chloride 105 mEq/L (98-107); Glucose 192 mg/dL (70-105); Osmolality,Calculated 291 (280-300); Potassium 3.7 mEq/L (3.5-5.1); Sodium 137 mEq/L (136-145); eGFR For African Americans > 60 (> 60); eGFR For Non-African Americans > 60 (> 60)
[2021-06-25 06:29] VITALS: O2SAT 97
[2021-06-25] MEDS: Insulin LISPRO 300 UNITS/3 ML VIAL SUBQ SCH ×2 (08:33→13:01)
[2021-06-25] MEDS: Aspirin Enteric Coated 81 MG Tablet PO SCH (09:27)
[2021-06-25] MEDS: PARoxetine 10 MG TABLET PO SCH (09:28)
[2021-06-25] MEDS: hydroCHLOROthiazide 25 MG TABLET PO SCH (09:28)
[2021-06-25] MEDS: Vancomycin 1,750 MG/517.5 ML IV.SOLN IVPB SCH (10:27)
[2021-06-25 10:52] VITALS: BP 143/82; PULSE 67; TEMP 97.9
== END 2021-06-25 14:50 | disposition home or self-care (01) | DRG 617 ==
LOC: 3BNU 16:26 → EMEROOARM 16:26 → SUATTDRO 20:05 → 3BNU 20:52 → 4WAOSI 06-24 17:07
PROVIDERS: ADMIT Student in an Organized Health Care Education/Training Program; ATTEND Registered Nurse

== ENCOUNTER 2021-10-04 15:04 | Inpatient (IN) ==
[2021-10-04] MEDS ORDERED: Ondansetron 4 MG/2 ML VIAL IVP PRN (15:55)
[2021-10-04] MEDS ORDERED: *HR* OxyCODONE Immed Rel 5 MG TABLET PO PRN (15:55)
[2021-10-04] MEDS ORDERED: Naloxone 0.4 MG/ML INJ IVP PRN (15:55)
[2021-10-04] MEDS ORDERED: *HR* Dextrose 50 % in Water (Syg) 50 ML SYRINGE IVP PRN (15:57)
[2021-10-04] MEDS ORDERED: D5% in Water 1,000 ML IVC PRN (15:57)
[2021-10-04] MEDS ORDERED: Dextrose Gel 15 GM/37.5 ML TUBE PO PRN ×2 (15:57)
[2021-10-04] MEDS: levoFLOXacin 750 MG/150 ML 750 MG/150 ML BAG IVPB SCH (19:02)
[2021-10-04] MEDS: *HR* Heparin 5,000 UNIT/ML VIAL SQ SCH (19:02)
[2021-10-04] MEDS: Insulin LISPRO 300 UNITS/3 ML VIAL SUBQ SCH (19:11)
[2021-10-04 20:08] LABS: Basophils % 0.5 %; Eosinophils # 0.2 K/mcL (0.0-0.6); Eosinophils % 2.5 %; Hematocrit 35.6 % (35.3-44.9); Hemoglobin 11.7 g/dL (11.5-15.4); Immature Granulocytes % 0.3 % (0-4); Lymphocytes # 1.8 K/mcL (0.6-4.6); Lymphocytes % 22.1 %; Mean Corpuscular HGB Conc 32.9 g/dL (31.6-35.5); Mean Corpuscular Hemoglobin 28.8 pg (28.0-33.3); Mean Corpuscular Volume 87.7 fL (83.0-100.0); Mean Platelet Volume 9.4 fL (9.4-12.4); Monocytes # 0.6 K/mcL (0.0-1.3); Monocytes % 7.3 %; Neutrophils # 5.4 K/mcL (1.6-8.9); Platelet Count 268 K/mcL (140-400); Red Blood Count 4.06 M/mcL (3.82-4.97); Red Cell Distribution Width 13.8 % (11.5-14.5); Segmented Neutrophils % 67.3 %
[2021-10-04 20:27] LABS: Alanine Aminotransferase 10 Units/L (7-52); Albumin 3.8 g/dL (3.5-5.7); Albumin/Globulin Ratio 1.2 (1.1-2.2); Alkaline Phosphatase 54 Units/L (34-104); Aspartate Amino Transferase 13 Units/L (13-39); BUN/Creatinine Ratio 24 (6-26); Bilirubin,Total 0.2 mg/dL (0.3-1.0); Blood Urea Nitrogen 20 mg/dL (8-23); C-Reactive Protein 29 mg/L (Less than 10); Calcium 8.8 mg/dL (8.6-10.3); Carbon Dioxide 23 mEq/L (23-29); Chloride 106 mEq/L (98-107); Globulin 3.1 g/dL (2.4-3.5); Glucose 171 mg/dL (70-105); Magnesium 1.9 mg/dL (1.6-2.6); Osmolality,Calculated 289 (280-300); Potassium 3.4 mEq/L (3.5-5.1); Sodium 136 mEq/L (136-145); Total Protein 6.9 g/dL (6.4-8.9); eGFR For African Americans > 60 (> 60); eGFR For Non-African Americans > 60 (> 60)
[2021-10-04 20:54] LABS: Estimated Average Glucose 143 mg/dl; Hemoglobin A1C 6.6 %
[2021-10-04] MEDS ORDERED: Vancomycin 1,500 MG/265 ML IV.SOLN IVPB ONE (21:30)
[2021-10-04] MEDS: traZODone 50 MG TABLET PO SCH (23:43)
[2021-10-05] MEDS: *HR* Heparin 5,000 UNIT/ML VIAL SQ SCH ×2 (03:59→17:14)
[2021-10-05] MEDS: Insulin LISPRO 300 UNITS/3 ML VIAL SUBQ SCH ×3 (08:36→17:14)
[2021-10-05] MEDS: PARoxetine 10 MG TABLET PO SCH (08:55)
[2021-10-05] MEDS: Aspirin Enteric Coated 81 MG Tablet PO SCH (08:55)
[2021-10-05] MEDS: Vancomycin 1,250 MG/262.5 ML IV.SOLN IVPB SCH ×2 (09:00→20:01)
[2021-10-05] MEDS ORDERED: *HR* Propofol 200 MG/20 ML VIAL IVP ONE (09:42)
[2021-10-05] MEDS ORDERED: *HR* FentaNYL (PF) 100 MCG/2 ML VIAL ONE (09:42)
[2021-10-05] MEDS ORDERED: Lidocaine -MPF 2% 5 ML VIAL ONE (09:42)
[2021-10-05] MEDS ORDERED: Lidocaine 1% 20 ML MDV ONE (10:16)
[2021-10-05] MEDS: levoFLOXacin 750 MG/150 ML 750 MG/150 ML BAG IVPB SCH (11:29)
[2021-10-05] MEDS: *HR* HYDROcodone/Acet 5/325 mg TABLET PO PRN (20:01)
[2021-10-05] MEDS: traZODone 50 MG TABLET PO SCH (22:45)
[2021-10-06] MEDS: *HR* HYDROcodone/Acet 5/325 mg TABLET PO PRN ×4 (02:32→22:56)
[2021-10-06] MEDS: *HR* Heparin 5,000 UNIT/ML VIAL SQ SCH ×2 (06:04→16:47)
[2021-10-06 08:32] LABS: Vancomycin,Trough 10 mcg/mL (5-10)
[2021-10-06] MEDS: Insulin LISPRO 300 UNITS/3 ML VIAL SUBQ SCH ×3 (08:33→16:49)
[2021-10-06] MEDS: PARoxetine 10 MG TABLET PO SCH (08:34)
[2021-10-06] MEDS: Aspirin Enteric Coated 81 MG Tablet PO SCH (08:34)
[2021-10-06] MEDS: levoFLOXacin 750 MG/150 ML 750 MG/150 ML BAG IVPB SCH (08:34)
[2021-10-06] MEDS ORDERED: Vancomycin 1,750 MG/517.5 ML IV.SOLN IVPB SCH (09:30)
[2021-10-06 10:25] LABS: eGFR For African Americans > 60 (> 60); eGFR For Non-African Americans > 60 (> 60)
[2021-10-06] MEDS: traZODone 50 MG TABLET PO SCH (22:56)
[2021-10-07] MEDS: Vancomycin 1,750 MG/517.5 ML IV.SOLN IVPB SCH ×2 (02:33→16:46)
[2021-10-07 04:50] LABS: Basophils % 0.4 %; Eosinophils # 0.3 K/mcL (0.0-0.6); Eosinophils % 3.7 %; Hematocrit 32.2 % (35.3-44.9); Hemoglobin 10.4 g/dL (11.5-15.4); Immature Granulocytes % 0.6 % (0-4); Lymphocytes # 2.4 K/mcL (0.6-4.6); Lymphocytes % 33.9 %; Mean Corpuscular HGB Conc 32.3 g/dL (31.6-35.5); Mean Corpuscular Hemoglobin 29.1 pg (28.0-33.3); Mean Corpuscular Volume 90.2 fL (83.0-100.0); Monocytes # 0.5 K/mcL (0.0-1.3); Monocytes % 7.3 %; Neutrophils # 3.8 K/mcL (1.6-8.9); Platelet Count 236 K/mcL (140-400); Red Blood Count 3.57 M/mcL (3.82-4.97); Red Cell Distribution Width 13.6 % (11.5-14.5); Segmented Neutrophils % 54.1 %; White Blood Count 7.1 K/mcL (4.3-11.1)
[2021-10-07 05:03] LABS: BUN/Creatinine Ratio 33 (6-26); Blood Urea Nitrogen 17 mg/dL (8-23); C-Reactive Protein 10 mg/L (Less than 10); Calcium 8.3 mg/dL (8.6-10.3); Carbon Dioxide 25 mEq/L (23-29); Chloride 109 mEq/L (98-107); Glucose 133 mg/dL (70-105); Osmolality,Calculated 289 (280-300); Potassium 3.7 mEq/L (3.5-5.1); Sodium 138 mEq/L (136-145); eGFR For African Americans > 60 (> 60); eGFR For Non-African Americans > 60 (> 60)
[2021-10-07] MEDS: Aspirin Enteric Coated 81 MG Tablet PO SCH (08:35)
[2021-10-07] MEDS: PARoxetine 10 MG TABLET PO SCH (08:35)
[2021-10-07] MEDS: levoFLOXacin 750 MG/150 ML 750 MG/150 ML BAG IVPB SCH (08:35)
[2021-10-07] MEDS: Insulin LISPRO 300 UNITS/3 ML VIAL SUBQ SCH ×3 (08:36→17:44)
[2021-10-07] MEDS: *HR* Heparin 5,000 UNIT/ML VIAL SQ SCH ×2 (08:41→16:47)
[2021-10-07] MEDS: *HR* HYDROcodone/Acet 5/325 mg TABLET PO PRN (18:15)
[2021-10-07] MEDS: traZODone 50 MG TABLET PO SCH (23:37)
[2021-10-08 02:11] LABS: Basophils % 0.4 %; Eosinophils # 0.3 K/mcL (0.0-0.6); Eosinophils % 3.9 %; Hematocrit 33.8 % (35.3-44.9); Hemoglobin 10.7 g/dL (11.5-15.4); Immature Granulocytes % 0.5 % (0-4); Lymphocytes # 2.3 K/mcL (0.6-4.6); Lymphocytes % 29.3 %; Mean Corpuscular HGB Conc 31.7 g/dL (31.6-35.5); Mean Corpuscular Hemoglobin 27.9 pg (28.0-33.3); Mean Corpuscular Volume 88.3 fL (83.0-100.0); Monocytes # 0.6 K/mcL (0.0-1.3); Monocytes % 7.1 %; Neutrophils # 4.6 K/mcL (1.6-8.9); Platelet Count 241 K/mcL (140-400); Red Blood Count 3.83 M/mcL (3.82-4.97); Red Cell Distribution Width 13.4 % (11.5-14.5); Segmented Neutrophils % 58.8 %; White Blood Count 7.8 K/mcL (4.3-11.1)
[2021-10-08 02:38] LABS: BUN/Creatinine Ratio 27 (6-26); Blood Urea Nitrogen 14 mg/dL (8-23); Calcium 8.5 mg/dL (8.6-10.3); Carbon Dioxide 26 mEq/L (23-29); Chloride 106 mEq/L (98-107); Glucose 130 mg/dL (70-105); Osmolality,Calculated 288 (280-300); Potassium 3.9 mEq/L (3.5-5.1); Sodium 138 mEq/L (136-145); eGFR For African Americans > 60 (> 60); eGFR For Non-African Americans > 60 (> 60)
[2021-10-08] MEDS: Vancomycin 1,750 MG/517.5 ML IV.SOLN IVPB SCH (03:19)
[2021-10-08] MEDS: *HR* Heparin 5,000 UNIT/ML VIAL SQ SCH (06:33)
[2021-10-08] MEDS: Insulin LISPRO 300 UNITS/3 ML VIAL SUBQ SCH (07:36)
[2021-10-08] MEDS: PARoxetine 10 MG TABLET PO SCH (08:41)
[2021-10-08] MEDS: Aspirin Enteric Coated 81 MG Tablet PO SCH (08:42)
[2021-10-08] MEDS: levoFLOXacin 750 MG/150 ML 750 MG/150 ML BAG IVPB SCH (08:42)
[2021-10-08 10:14] VITALS: BP 120/64; PULSE 78; TEMP 97.6; O2SAT 97
== END 2021-10-08 12:50 | disposition home or self-care (01) | DRG 617 ==
LOC: 4WAOSI → SUATTDRO 15:18
PROVIDERS: ADMIT Internal Medicine; ATTEND Pharmacist